=== PATIENT | male | born 1980 | race Hispanic/Latino ===

== ENCOUNTER 2017-09-25 07:51 | Emergency (ER) | payer OTHER, SELFPAY ==
--- NOTE | 2017-09-25 08:35 | EDPHYS ---
Physician Documentation [facility] Name: Bimal Arriaza Age: 36 yrs Sex: Male : 1980 Arrival Date: 09/25/2017 Time: 07:52 Bed 15 Private MD: ED Physician Torey Garcia HPI: 09/25 08:32 This 36 yrs old Male presents to ER via Ambulatory with complaints of Genital snw Pain. 08:32 The patient presents with tenderness, that is mild, penile. Onset: The symptoms/episode snw began/occurred gradually, 1 month(s) ago, and became persistent. Modifying factors: The symptoms are alleviated by nothing. Associated signs and symptoms: The patient has no apparent associated signs or symptoms. Severity of symptoms: At their worst the symptoms were mild, moderate. It is unknown whether or not the patient has had similar symptoms in the past. The patient has not recently seen a physician. uncircumcised. Historical: - Allergies: 08:03 PENICILLINS; lk1 - PMHx: 08:03 Diabetes - NIDDM; gastroporeisis; Hypertension; Chronic pain; lk1 - PSHx: 08:03 None; lk1 - Immunization history:: Adult Immunizations up to date. - Social history:: Smoking status: Patient uses tobacco products, smokes one-half pack cigarettes per day. ROS: 08:22 Constitutional: Negative for fever, chills, and weight loss, Eyes: Negative for injury, snw pain, redness, and discharge, ENT: Negative for injury, pain, and discharge, Neck: Negative for injury, pain, and swelling, Cardiovascular: Negative for chest pain, palpitations, and edema, Respiratory: Negative for shortness of breath, cough, wheezing, and pleuritic chest pain, Abdomen/GI: Negative for abdominal pain, nausea, vomiting, diarrhea, and constipation, Back: Negative for injury and pain, MS/Extremity: Negative for injury and deformity, Skin: Negative for injury, rash, and discoloration, Neuro: Negative for headache, weakness, numbness, tingling, and seizure. 08:22 : Positive for difficulty retracting foreskin with scabbed area that wont heal x 1 month, Negative for hematuria, penile discharge, urinary retention. Exam: 08:22 Constitutional: This is a well developed, well nourished patient who is awake, alert, snw and in no acute distress. Head/Face: Normocephalic, atraumatic. Eyes: Pupils equal round and reactive to light, extra-ocular motions intact. Lids and lashes normal. Conjunctiva and sclera are non-icteric and not injected. Cornea within normal limits. Periorbital areas with no swelling, redness, or edema. ENT: Nares patent. No nasal discharge, no septal abnormalities noted. Tympanic membranes are normal and external auditory canals are clear. Oropharynx with no redness, swelling, or masses, exudates, or evidence of obstruction, uvula midline. Mucous membranes moist. Neck: Trachea midline, no thyromegaly or masses palpated, and no cervical lymphadenopathy. Supple, full range of motion without nuchal rigidity, or vertebral point tenderness. No Meningismus. Chest/axilla: Normal chest wall appearance and motion. Nontender with no deformity. No lesions are appreciated. Cardiovascular: Regular rate and rhythm with a normal S1 and S2. No gallops, murmurs, or rubs. Normal PMI, no JVD. No pulse deficits. Respiratory: Lungs have equal breath sounds bilaterally, clear to auscultation and percussion. No rales, rhonchi or wheezes noted. No increased work of breathing, no retractions or nasal flaring. Abdomen/GI: Soft, non-tender, with normal bowel sounds. No distension or tympany. No guarding or rebound. No evidence of tenderness throughout. Back: No spinal tenderness. No costovertebral tenderness. Full range of motion. Skin: Warm, dry with normal turgor. Normal color with no rashes, no lesions, and no evidence of cellulitis. MS/ Extremity: Pulses equal, no cyanosis. Neurovascular intact. Full, normal range of motion. Neuro: Awake and alert, GCS 15, oriented to person, place, time, and situation. Cranial nerves II-XII grossly intact. Motor strength 5/5 in all extremities. Sensory grossly intact. Cerebellar exam normal. Normal gait. 08:22 : Male external genitalia: Patient is not circumisioned. trouble retracting foreskin x 1 month. dry scabbing at distal tip. Vital Signs: 08:03 BP 154 / 101; Pulse 84; Resp 15; Temp 97.6(TE); Pulse Ox 100% on R/A; Weight 72.57 kg lk1 (R); Height 5 ft. 7 in. (170.18 cm) (R); Pain 6/10; 08:03 Body Mass Index 25.06 (72.57 kg, 170.18 cm) lk1 MDM: 07:59 Patient medically screened. snw 08:36 Data reviewed: vital signs, nurses notes. Data interpreted: Pulse oximetry: on room air snw is 100 %. Counseling: I had a detailed discussion with the patient and/or guardian regarding: the historical points, exam findings, and any diagnostic results supporting the discharge/admit diagnosis, the presence of at least one elevated blood pressure reading (>120/80) during this emergency department visit, the need for outpatient follow up, to return to the emergency department if symptoms worsen or persist or if there are any questions or concerns that arise at home. Special discussion: I have referred the patient to see his PCP for further evaluation of high blood pressure. Based on the history and exam findings, there is no indication for further emergent testing or inpatient evaluation. I discussed with the patient/guardian the need to see the primary care provider for further evaluation of the symptoms. I discussed with the patient/guardian the need to see the urologist for further evaluation of the symptoms. Administered Medications: 08:45 Drug: DiFLUcan 400 mg Route: PO; ph 08:54 Follow up: Response: No adverse reaction ph Disposition: 09/26 07:47 Co-signature as Attending Physician, Torey Garcia MD Available for consultation at ps1 all times. . Disposition: 09/25/17 08:34 Discharged to Home. Impression: Phimosis. - Condition is Stable. - Discharge Instructions: Hypertension, Phimosis. - Medication Reconciliation Form, Thank You Letter, Antibiotic Education, Prescription Opioid Use form. - Follow up: Monisha Jefferson MD; When: 1 - 2 days; Reason: Recheck today's complaints, Continuance of care. Signatures: Lindsey Gonzalez, MEKHI-C QUALITY MANAGER-Csnw Oriana Scott, RN RN ph Sammi Lagunas RN RN lk1 Torey Garcia MD MD ps1 Corrections: (The following items were deleted from the chart) 09/25 08:42 08:22 : Positive for difficulty retracting foreskin with scabbed area that wont heal snw x 1 month, snw
--- NOTE | 2017-09-25 08:35 | ER ---
Nurse's Notes [facility] Name: Bimal Arriaza Age: 36 yrs Sex: Male : 1980 Arrival Date: 09/25/2017 Time: 07:52 Bed 15 Private MD: Diagnosis: Phimosis Presentation: 09/25 08:00 Presenting complaint: Patient states: "I have some white stuff around the tip of my lk1 penis and the skin is swelling shut. Maybe its a fungus and I am having trouble healing because I am diabetic.". Transition of care: patient was not received from another setting of care. Onset of symptoms was August 24, 2017. Care prior to arrival: None. 08:00 Method Of Arrival: Ambulatory lk1 08:00 Acuity: RICARDO 4 lk1 Triage Assessment: 08:03 General: Appears in no apparent distress. Behavior is calm, cooperative, appropriate lk1 for age. Pain: Complains of pain in pelvis Pain currently is 6 out of 10 on a pain scale. Historical: - Allergies: 08:03 PENICILLINS; lk1 - PMHx: 08:03 Diabetes - NIDDM; gastroporeisis; Hypertension; Chronic pain; lk1 - PSHx: 08:03 None; lk1 - Immunization history:: Adult Immunizations up to date. - Social history:: Smoking status: Patient uses tobacco products, smokes one-half pack cigarettes per day. Screenin:15 Abuse screen: Denies threats or abuse. Denies injuries from another. Nutritional ph screening: No deficits noted. Tuberculosis screening: No symptoms or risk factors identified. Fall Risk None identified. Assessment: 08:10 General: Appears in no apparent distress. uncomfortable, Behavior is calm, cooperative, ph appropriate for age, Denies fever. Pain: Complains of pain in groin. Neuro: Level of Consciousness is awake, alert, obeys commands, Oriented to person, place, time, situation. Cardiovascular: Capillary refill < 3 seconds Patient's skin is warm and dry. Respiratory: Airway is patent Respiratory effort is even, unlabored. : Penile discharge is white, Swelling noted at urinary meatus Reports pain with urination, Denies inability to void. Derm: Skin is intact, is healthy with good turgor, Skin is pink, warm \\T\\ dry. Musculoskeletal: Circulation, motion, and sensation intact. Range of motion: intact in all extremities. Vital Signs: 08:03 BP 154 / 101; Pulse 84; Resp 15; Temp 97.6(TE); Pulse Ox 100% on R/A; Weight 72.57 kg lk1 (R); Height 5 ft. 7 in. (170.18 cm) (R); Pain 6/10; 08:03 Body Mass Index 25.06 (72.57 kg, 170.18 cm) lk1 ED Course: 07:52 Patient arrived in ED. as 07:59 Lindsey Gonzalez FNP-C [facility]. snw 07:59 Torey Garcia MD is Attending Physician. snw 08:00 Oriana Scott, RN is Primary Nurse. ph 08:02 Triage completed. lk1 08:03 Arm band placed on right wrist. lk1 08:15 Patient has correct armband on for positive identification. Placed in gown. Bed in low ph position. Call light in reach. Side rails up X 1. Pulse ox on. NIBP on. Warm blanket given. 08:34 Monisha Jefferson MD is Referral Physician. snw 08:58 No provider procedures requiring assistance completed. Patient did not have IV access ph during this emergency room visit. Administered Medications: 08:45 Drug: DiFLUcan 400 mg Route: PO; ph 08:54 Follow up: Response: No adverse reaction ph Outcome: 08:34 Discharge ordered by . snw 08:59 Discharged to home ambulatory. ph 08:59 Condition: good 08:59 Discharge instructions given to patient, Instructed on discharge instructions, follow up and referral plans. Demonstrated understanding of instructions, follow-up care. 08:59 Patient left the ED. ph Signatures: Lindsey Gonzalez FNP-C BATH TESTER-Jyoti Gee as Oriana Scott, RN RN ph Sammi Lagunas RN RN lk1
[2017-09-25] MEDS ORDERED: FLUCONAZOLE 100 MG TAB ONE (08:51)
[2017-09-25 09:02] VITALS: BP 154/101; TEMP 97.6; O2SAT 100
== END 2017-09-25 08:59 | disposition home or self-care (01) ==
LOC: ER 07:51
DX: N47.1 Phimosis (principal); I10 Essential (primary) hypertension; F17.210 Nicotine dependence, cigarettes, uncomplicated; Z88.0 Allergy status to penicillin
CPT/HCPCS: 99283

== ENCOUNTER 2017-12-10 11:32 | Emergency (ER) | payer SELFPAY ==
[2017-12-10] MEDS ORDERED: NA CHLORIDE 0.9% 1,000 ML ONE (12:00)
[2017-12-10 12:06] LABS: Absolute Monocytes 1.3 K/uL (0.1-1.3); Basophils % 0.8 % (0-1.3); Eosinophils % 0.4 % (0-4.4); Hematocrit 40.1 % (39.6-49.0); Lymphocytes % 23.9 % (15.3-44.8); MCV 89.5 fL (80-100); MPV 7.7 fL (7.6-11.3); Monocytes % 10.2 % (3.3-12.3); RBC Red Blood Cell Count 4.48 M/uL (4.33-5.43)
[2017-12-10 12:21] LABS: ALT/SGPT 40 U/L (12-78); AST/SGOT 26 U/L (15-37); Albumin 4.4 g/dL (3.4-5.0); Alkaline Phosphatase 67 U/L (45-117); BUN Blood Urea Nitrogen 22 mg/dL (7-18); Bicarbonate 25 mmol/L (21-32); Bilirubin Direct < 0.1 mg/dL (0-0.2); Bilirubin Total 0.4 mg/dL (0.2-1.0); Glucose Level 176 mg/dL (74-106); Lipase 153 U/L (73-393); Potassium 3.7 mmol/L (3.5-5.1); Protein, Total 8.3 g/dL (6.4-8.2); Sodium Level 136 mmol/L (136-145)
--- NOTE | 2017-12-10 12:22 | RAD REPORT ---
EXAM DESCRIPTION: CT - Stone Protocol - 12/10/2017 12:11 pm CLINICAL HISTORY: Flank pain. ABD PAIN COMPARISON: Abdomen Pelvis W Contrast dated 02/28/2016 TECHNIQUE: Axial images were obtained without oral or IV contrast. Lack of contrast limits solid org an and vascular assessment. The [id number] spans the entirety of the system partially obscuring uppermost abdomen and lung bases. Coronal reformatted images were obtained and reviewed. All CT scans are performed using dose optimization technique as appropriate and may include automated exposure control or mA/KV adjustment according to patient size. FINDINGS: The lower lung clark are clear. Mild thickening of the distal esophagus. Imaged portions of the liver and spleen show no suspicious findings on non-contrast imaging. The panc reas and adrenal glands are normal. No pathologic lymphadenopathy in the abdomen or pelvis. No urinary tract stones or obstructive uropathy. 4 cm right renal cysts, unchanged. No bowel obstruction, free air, free fluid or abscess. Normal appendix noted. No significant bony abnormality. IMPRESSION: No urinary tract stones or obstructive uropathy.
--- NOTE | 2017-12-10 12:33 | ER ---
Nurse's Notes [facility] Name: Bimal Arriaza Age: 37 yrs Sex: Male : 1980 Arrival Date: 12/10/2017 Time: 11:34 Bed 14 Private MD: Diagnosis: Abdominal and pelvic pain;Chronic pain syndrome Presentation: 12/10 11:37 Presenting complaint: EMS states: pt. has had N/V and abdominal pain x 2 days, rb1 constipation x 4, and vomited dark emesis and feels like something is stuck in his throat. Administered Fentanyl 80 mcg IV x1 and Fentanyl 120 mcg x 1 and Zofran 4 mg x 1. Allergy to PCN. Takes Lisinopril, Levemir, and Glipizide. History of diabetes and gastroparesis. BP 150/100. 20 G AC. Transition of care: patient was not received from another setting of care. Onset of symptoms was December 07, 2017. Risk Assessment: Do you want to hurt yourself or someone else? Patient reports no desire to harm self or others. Initial Sepsis Screen: Does the patient meet any 2 criteria? No. Patient's initial sepsis screen is negative. Does the patient have a suspected source of infection? No. Patient's initial sepsis screen is negative. Care prior to arrival: Medication(s) given: zofran 4 mg, Fentanyl 80 mcg x1 and Fentanyl 120 mcg x1. 11:37 Method Of Arrival: EMS: [facility] rb1 11:37 Acuity: RICARDO 3 rb1 Triage Assessment: 11:37 General: Appears uncomfortable, Behavior is calm, cooperative. Pain: Complains of pain rb1 in epigastric area Pain currently is 10 out of 10 on a pain scale. Neuro: Level of Consciousness is awake, alert, obeys commands, Oriented to person, place, time, situation. Cardiovascular: Capillary refill < 3 seconds is brisk in bilateral fingers. Respiratory: Airway is patent Respiratory effort is even, unlabored, Respiratory pattern is regular, symmetrical. GI: Reports constipation, since x 4 days. : No signs and/or symptoms were reported regarding the genitourinary system. Derm: Skin is pink, warm \T\ dry. Historical: - Allergies: 11:37 PENICILLINS; rb1 - Home Meds: 11:37 Glipizide Oral [Active]; Lisinopril Oral [Active]; Levemir subcutaneous subcutaneous rb1 [Active]; - PMHx: 11:37 Chronic pain; Diabetes - NIDDM; gastroporeisis; Hypertension; rb1 - PSHx: 11:37 None; rb1 - Immunization history:: Adult Immunizations up to date. - Social history:: Smoking status: Patient/guardian denies using tobacco, the patient reports quitting approximately 0.5 years ago. - Ebola Screening: : Patient negative for fever greater than or equal to 101.5 degrees Fahrenheit, and additional compatible Ebola Virus Disease symptoms. Screenin:37 Abuse screen: Denies threats or abuse. Nutritional screening: No deficits noted. rb1 Tuberculosis screening: No symptoms or risk factors identified. Fall Risk None identified. Assessment: 11:37 General: See triage assessment. rb1 11:37 Reassessment: Pt. went to CT. rb1 11:37 GI: Bowel sounds present X 4 quads. Abd is soft Abdomen is tender to palpation in rb1 epigastric area. 12:30 Reassessment: Patient appears in no apparent distress at this time. Patient and/or rb1 family updated on plan of care and expected duration. Pain level reassessed. Patient is alert, oriented x 3, equal unlabored respirations, skin warm/dry/pink. 12:44 Reassessment: discharge pending due to IV fluids infusing. rb1 13:30 Reassessment: Patient appears in no apparent distress at this time. No changes from rb1 previously documented assessment. Vital Signs: 11:37 BP 149 / 91; Pulse 98; Resp 20; Temp 97.6(O); Pulse Ox 98% on R/A; Weight 79.38 kg (R); rb1 Height 5 ft. 7 in. (170.18 cm) (R); Pain 10/10; 12:30 BP 149 / 91; Pulse 78; Resp 20; Pulse Ox 100% on R/A; rb1 13:30 BP 149 / 82; Pulse 77; Resp 20; Pulse Ox 100% ; rb1 11:37 Body Mass Index 27.41 (79.38 kg, 170.18 cm) [facility] ED Course: 11:34 Patient arrived in ED. ss 11:37 Christiano Ribeiro MD is Attending Physician. gs 11:37 Patient has correct armband on for positive identification. Bed in low position. Call rb1 light in reach. Side rails up X 1. Pulse ox on. NIBP on. 11:37 Arm band placed on left wrist. rb1 11:43 Rosmery Greenwood, RN is Primary Nurse. rb1 11:49 Triage completed. rb1 11:56 Initial lab(s) drawn, by me, sent to lab. Maintain EMS IV. Dressing intact. Good blood jp3 return noted. Site clean \T\ dry. 12:12 CT Stone Protocol In Process Unspecified. EDMS 12:12 CT completed. Patient tolerated procedure well. Patient moved back from CT. bq 12:31 Eze Mcintyre MD is Referral Physician. gs 12:32 Neftali Gayle DO is Referral Physician. gs 13:55 No provider procedures requiring assistance completed. IV discontinued, intact, rb1 bleeding controlled, No redness/swelling at site. Pressure dressing applied. Administered Medications: 12:01 Drug: NS 0.9% 1000 ml Route: IV; Rate: 1 bolus; Site: right antecubital; rb1 13:43 Follow up: IV Status: Completed infusion rb1 12:25 Drug: CarafATE 1 grams Route: PO; rb1 13:00 Follow up: Response: No adverse reaction rb1 12:43 Drug: HALdol 2.5 mg Route: IVP; Site: right antecubital; rb1 13:05 Follow up: Response: No adverse reaction rb1 13:50 Drug: Benadryl 25 mg Route: IVP; Site: right antecubital; rb1 14:00 Follow up: Response: Medication administered at discharge. rb1 13:50 Drug: HALdol 2.5 mg Route: IVP; Site: right antecubital; rb1 14:00 Follow up: Response: Medication administered at discharge. rb1 Outcome: 12:32 Discharge ordered by . gs 13:55 Discharged to home ambulatory. rb1 13:55 Condition: stable 13:55 Discharge instructions given to patient, Instructed on discharge instructions, follow up and referral plans. medication usage, Demonstrated understanding of instructions, follow-up care, Prescriptions given X none. pt. was told to use Miralax 13:55 Patient left the ED. rb1 Signatures: Dispatcher [employer] EDMS Duyen Saleh Shelby, RN RN Rosmery Greenwood, HUNTER HARRISON rb1 Christiano Ribeiro MD MD Herb Toney jp3 Corrections: (The following items were deleted from the chart) 14:00 13:55 Benadryl 25 mg IVP in right antecubital rb1 rb1 14:05 14:03 Patient left the ED. rb1 rb1
--- NOTE | 2017-12-10 12:33 | EDPHYS ---
Physician Documentation [facility] Name: Bimal Arriaza Age: 37 yrs Sex: Male : 1980 Arrival Date: 12/10/2017 Time: 11:34 Bed 14 Private MD: ED Physician Christiano Ribeiro HPI: 12/10 12:28 This 37 yrs old Male presents to ER via EMS with complaints of Abdominal Pain. gs 12:28 The patient presents with abdominal pain that is diffuse. Onset: The symptoms/episode gs began/occurred 2 day(s) ago. The symptoms do not radiate. Associated signs and symptoms: Pertinent positives: constipation, vomiting. Associated signs and symptoms: Pertinent positives:. The symptoms are described as crampy. Severity of pain: At its worst the pain was moderate in the emergency department the pain is unchanged. The patient has experienced similar episodes in the past, chronically. Historical: - Allergies: 11:37 PENICILLINS; rb1 - Home Meds: 11:37 Glipizide Oral [Active]; Lisinopril Oral [Active]; Levemir subcutaneous subcutaneous rb1 [Active]; - PMHx: 11:37 Chronic pain; Diabetes - NIDDM; gastroporeisis; Hypertension; rb1 - PSHx: 11:37 None; rb1 - Immunization history:: Adult Immunizations up to date. - Social history:: Smoking status: Patient/guardian denies using tobacco, the patient reports quitting approximately 0.5 years ago. - Ebola Screening: : Patient negative for fever greater than or equal to 101.5 degrees Fahrenheit, and additional compatible Ebola Virus Disease symptoms. ROS: 12:28 All other systems are negative. gs Exam: 12:28 Head/Face: Normocephalic, atraumatic. Eyes: Pupils equal round and reactive to light, gs extra-ocular motions intact. Lids and lashes normal. Conjunctiva and sclera are non-icteric and not injected. Cornea within normal limits. Periorbital areas with no swelling, redness, or edema. ENT: Nares patent. No nasal discharge, no septal abnormalities noted. Tympanic membranes are normal and external auditory canals are clear. Oropharynx with no redness, swelling, or masses, exudates, or evidence of obstruction, uvula midline. Mucous membranes moist. Neck: Trachea midline, no thyromegaly or masses palpated, and no cervical lymphadenopathy. Supple, full range of motion without nuchal rigidity, or vertebral point tenderness. No Meningismus. Chest/axilla: Normal chest wall appearance and motion. Nontender with no deformity. No lesions are appreciated. Cardiovascular: Regular rate and rhythm with a normal S1 and S2. No gallops, murmurs, or rubs. Normal PMI, no JVD. No pulse deficits. Respiratory: Lungs have equal breath sounds bilaterally, clear to auscultation and percussion. No rales, rhonchi or wheezes noted. No increased work of breathing, no retractions or nasal flaring. Back: No spinal tenderness. No costovertebral tenderness. Full range of motion. Skin: Warm, dry with normal turgor. Normal color with no rashes, no lesions, and no evidence of cellulitis. MS/ Extremity: Pulses equal, no cyanosis. Neurovascular intact. Full, normal range of motion. Neuro: Awake and alert, GCS 15, oriented to person, place, time, and situation. Cranial nerves II-XII grossly intact. Motor strength 5/5 in all extremities. Sensory grossly intact. Cerebellar exam normal. Normal gait. 12:28 Constitutional: The patient appears alert, awake, uncomfortable. 12:28 Abdomen/GI: Palpation: mild abdominal tenderness, in the epigastric area, rebound tenderness, is not appreciated. Vital Signs: 11:37 BP 149 / 91; Pulse 98; Resp 20; Temp 97.6(O); Pulse Ox 98% on R/A; Weight 79.38 kg (R); rb1 Height 5 ft. 7 in. (170.18 cm) (R); Pain 10/10; 12:30 BP 149 / 91; Pulse 78; Resp 20; Pulse Ox 100% on R/A; rb1 13:30 BP 149 / 82; Pulse 77; Resp 20; Pulse Ox 100% ; rb1 11:37 Body Mass Index 27.41 (79.38 kg, 170.18 cm) rb1 MDM: 11:37 Patient medically screened. gs 12:28 Differential diagnosis: non-specific abd pain, pancreatitis, CHRONIC ABDOMINAL PAIN. gs Data reviewed: vital signs, nurses notes. Response to treatment: the patient's symptoms have markedly improved after treatment, INFORMED PT WOULD NOT BE GIVING HIM OPIATE PAIN MEDICATION, and as a result, I will discharge patient. 12/10 11:38 Order name: Basic Metabolic Panel; Complete Time: 12:25 12/10 11:38 Order name: CBC with Diff; Complete Time: 12:25 12/10 11:38 Order name: Hepatic Function; Complete Time: 12:25 12/10 11:38 Order name: Lipase; Complete Time: 12:25 12/10 11:38 Order name: CT Stone Protocol; Complete Time: 12:25 12/10 11:38 Order name: IV Saline Lock; Complete Time: 11:54 12/10 11:38 Order name: Labs collected and sent; Complete Time: 11:54 gs Administered Medications: 12:01 Drug: NS 0.9% 1000 ml Route: IV; Rate: 1 bolus; Site: right antecubital; rb1 13:43 Follow up: IV Status: Completed infusion rb1 12:25 Drug: CarafATE 1 grams Route: PO; rb1 13:00 Follow up: Response: No adverse reaction rb1 12:43 Drug: HALdol 2.5 mg Route: IVP; Site: right antecubital; rb1 13:05 Follow up: Response: No adverse reaction rb1 13:50 Drug: Benadryl 25 mg Route: IVP; Site: right antecubital; rb1 14:00 Follow up: Response: Medication administered at discharge. rb1 13:50 Drug: HALdol 2.5 mg Route: IVP; Site: right antecubital; rb1 14:00 Follow up: Response: Medication administered at discharge. rb1 Disposition: 12/10/17 12:32 Discharged to Home. Impression: Abdominal and pelvic pain, Chronic pain syndrome. - Condition is Stable. - Discharge Instructions: Chronic Pain, Abdominal Pain, Adult, [id number]. - Prescriptions for Miralax 17 gram/dose Oral - take 1 packet by ORAL route once daily dilute powder in 8 ounces of water or juice; 1 bottle. - Medication Reconciliation Form, Thank You Letter, Antibiotic Education, Prescription Opioid Use form. - Follow up: Eze Mcintyre MD; When: 2 - 3 days; Reason: Recheck today's complaints, Re-evaluation by your physician. Follow up: Neftali Gayle DO; When: 2 - 3 days; Reason: Re-evaluation by your physician. Signatures: Dispatcher [employer] EDRosmery Blue, RN RN rb1 Christiano Ribeiro MD MD Corrections: (The following items were deleted from the chart) 14:02 11:38 Urine Dipstick-Ancillary ordered. gs rb1 14:03 12:32 12/10/2017 12:32 Discharged to Home. Impression: Abdominal and pelvic pain; rb1 Chronic pain syndrome. Condition is Stable. Forms are Medication Reconciliation Form, Thank You Letter, Antibiotic Education, Prescription Opioid Use. Follow up: Eze Mcintyre; When: 2 - 3 days; Reason: Recheck today's complaints, Re-evaluation by your physician. Follow up: Neftali Gayle; When: 2 - 3 days; Reason: Re-evaluation by your physician.
[2017-12-10] MEDS ORDERED: HALOPERIDOL LACT 5 MG/ML INJ ONE ×2 (12:42→13:48)
[2017-12-10] MEDS ORDERED: SUCRALFATE 1GM/10ML UCUP PO ONE (13:00)
[2017-12-10] MEDS ORDERED: DIPHENHYDRAMINE 50 MG/ML VIAL ONE (13:48)
[2017-12-10 14:07] VITALS: TEMP 97.6
[2017-12-10 14:08] VITALS: O2SAT 100
[2017-12-10 14:09] VITALS: BP 149/82
== END 2017-12-10 14:03 | disposition home or self-care (01) ==
LOC: ER 11:32
DX: G89.4 Chronic pain syndrome (principal); I10 Essential (primary) hypertension; E11.9 Type 2 diabetes mellitus without complications; Z79.4 Long term (current) use of insulin; Z88.0 Allergy status to penicillin
CPT/HCPCS: 36415; 74176; 76377; 80048; 80076; 82962; 83690; 85025; 96361; 96374; 96375; 99284; J1630; J7030

== ENCOUNTER 2018-10-29 17:53 | Emergency (ER) | payer OTHER, SELFPAY ==
--- NOTE | 2018-10-29 19:47 | RAD REPORT ---
EXAM DESCRIPTION: RAD - Forearm Right - 10/29/2018 7:39 pm CLINICAL HISTORY: Right arm pain FINDINGS: No fracture is seen involving the forearm.
--- NOTE | 2018-10-29 19:48 | RAD REPORT ---
EXAM DESCRIPTION: RAD - Hand Right 3 View - 10/29/2018 7:37 pm CLINICAL HISTORY: Right hand pain status post injury FINDINGS: Moderately displaced fracture involves the fifth metacarpal neck with angulation present a t the fracture site. No dislocation
[2018-10-29] MEDS ORDERED: IBUPROFEN 400 MG TAB ONE (19:51)
--- NOTE | 2018-10-29 19:59 | EDPHYS ---
Physician Documentation [facility] Name: Bimal Arriaza Age: 38 yrs Sex: Male : 1980 Arrival Date: 10/29/2018 Time: 17:54 Bed 20 Private MD: ED Physician Bryanna Delgado HPI: 10/29 19:15 This 38 yrs old Male presents to ER via Ambulatory with complaints of Hand cp Injury. 19:15 The patient or guardian reports decreased range of motion, injury, pain, swelling, cp tenderness. The complaints affect the ulna side of right hand. 19:15 Context: resulted from a fall. Onset: The symptoms/episode began/occurred 3 day(s) ago. cp Associated signs and symptoms: Pertinent negatives: cyanosis distally, decreased sensation distally. Historical: - Allergies: 18:11 PENICILLINS; aj1 - Home Meds: 18:11 Glipizide Oral [Active]; lisinopril Oral [Active]; Glyburide Oral [Active]; Levemir aj1 subcutaneous [Active]; - PMHx: 18:11 Chronic pain; Diabetes - NIDDM; gastroporeisis; Hypertension; aj1 - Immunization history:: Flu vaccine is not up to date. - Social history:: Smoking status: Patient uses tobacco products, smokes one-half pack cigarettes per day. - Ebola Screening: : Patient denies travel to an Ebola-affected area in the 21 days before illness onset. ROS: 19:20 Constitutional: Negative for body aches, chills, fever, poor PO intake. cp 19:20 Eyes: Negative for injury, pain, redness, and discharge. cp 19:20 ENT: Negative for drainage from ear(s), sore throat, difficulty swallowing, difficulty handling secretions. 19:20 Neck: Negative for pain with movement, pain at rest, stiffness. 19:20 Cardiovascular: Negative for chest pain. 19:20 Respiratory: Negative for cough, shortness of breath, wheezing. 19:20 Abdomen/GI: Negative for abdominal pain, vomiting, diarrhea, constipation. 19:20 Back: Negative for pain at rest, pain with movement. 19:20 MS/extremity: Positive for injury or acute deformity, decreased range of motion, pain, swelling, tenderness, of the ulna side of right hand. 19:20 Neuro: Negative for altered mental status, headache. 19:20 All other systems are negative. Exam: 19:25 Constitutional: The patient appears in no acute distress, alert, awake, well developed, cp well nourished. 19:25 Head/Face: Normocephalic, atraumatic. cp 19:25 Musculoskeletal/extremity: Extremities: grossly normal except: noted in the ulna side of right hand: deformity, pain, swelling, tenderness, ROM: limited active range of motion due to pain, in the right small finger, Perfusion: the extremity is normally perfused throughout, Sensation intact. 19:25 Skin: negative for open wounds of right hand. Vital Signs: 18:11 BP 146 / 92; Pulse 81; Resp 18; Temp 97.7; Pulse Ox 99% on R/A; Weight 77.11 kg (R); aj1 Height 5 ft. 7 in. (170.18 cm) (R); 19:15 BP 145 / 83; Pulse 74; Resp 18; Pulse Ox 99% ; ea 20:50 BP 136 / 86; Pulse 77; Resp 18; Pulse Ox 99% ; ea 18:11 Body Mass Index 26.63 (77.11 kg, 170.18 cm) aj1 Procedures: 21:00 Splinting: Splint applied to right hand using Orthoglass splint, sling, ulna gutter cp type. applied by tech. nurse. Examined by me, post splint application: neurovascular intact, Patient tolerated well. MDM: 19:07 Patient medically screened. cp 19:15 Differential diagnosis: dislocation, open fracture, closed fracture. cp 19:50 Test interpretation: by ED physician or midlevel provider: plain radiologic studies. ED cp course: xray of right hand show fracture of distal right fifth metacarpal . 19:58 Data reviewed: vital signs, nurses notes, radiologic studies, plain films. cp 19:58 Counseling: I had a detailed discussion with the patient and/or guardian regarding: the cp historical points, exam findings, and any diagnostic results supporting the discharge/admit diagnosis, radiology results, the need for outpatient follow up, for definitive care, a hand specialist, to return to the emergency department if symptoms worsen or persist or if there are any questions or concerns that arise at home. Response to treatment: the patient's symptoms have mildly improved after treatment, and as a result, I will discharge patient. 10/29 19:09 Order name: XRAY Hand RIGHT 3 View cp 10/29 19:09 Order name: XRAY Forearm RIGHT cp 10/29 19:57 Order name: Ulnar Gutter splint: orthoglass; Complete Time: 20:54 cp 10/29 21:01 Order name: Sling; Complete Time: 21:01 ea Administered Medications: 19:40 Drug: Ibuprofen 800 mg Route: PO; ea 20:50 Follow up: Response: No adverse reaction; Pain is decreased ea Disposition: 10/29/18 19:58 Discharged to Home. Impression: Displaced fracture of neck of fifth metacarpal bone, right hand. - Condition is Stable. - Discharge Instructions: Boxer's Fracture. - Prescriptions for Naprosyn 500 mg Oral Tablet - take 1 tablet by ORAL route 2 times per day take with food; 20 tablet. Tylenol- Codeine #3 300-30 mg Oral Tablet - take 2 tablets by ORAL route every 8 hours As needed; 15 tablet. - Medication Reconciliation Form, Thank You Letter, Antibiotic Education, Prescription Opioid Use, Work release form form. - Follow up: Ryan Pereira MD; When: 1 - 2 days; Reason: boxer's fracture of right hand. - Problem is new. - Symptoms have improved. Signatures: Dispatcher [employer] EDMS Rita Frey RN RN aj1 Yevgeniy Simon PA PA cp Antunez, Elena, RN RN ea Corrections: (The following items were deleted from the chart) 21:04 19:58 10/29/2018 19:58 Discharged to Home. Impression: Displaced fracture of neck of ea fifth metacarpal bone, right hand. Condition is Stable. Forms are Medication Reconciliation Form, Thank You Letter, Antibiotic Education, Prescription Opioid Use. Follow up: Ryan Pereira; When: 1 - 2 days; Reason: boxer's fracture of right hand. Problem is new. Symptoms have improved. cp
--- NOTE | 2018-10-29 19:59 | ER ---
Nurse's Notes [facility] Name: Bimal Arriaza Age: 38 yrs Sex: Male : 1980 Arrival Date: 10/29/2018 Time: 17:54 Bed 20 Private MD: Diagnosis: Displaced fracture of neck of fifth metacarpal bone, right hand Presentation: 10/29 18:09 Presenting complaint: Patient states: "I think I broke my hand. I thought I just aj1 bruised it then I noticed it getting swollen and I can't left my last 2 fingers" Patient reports that he fell down three steps and hurt his hand when he fell 3 days ago. Transition of care: patient was not received from another setting of care. Onset of symptoms was October 30, 2018. Risk Assessment: Do you want to hurt yourself or someone else? Patient reports no desire to harm self or others. Initial Sepsis Screen: Does the patient meet any 2 criteria? No. Patient's initial sepsis screen is negative. Does the patient have a suspected source of infection? No. Patient's initial sepsis screen is negative. Care prior to arrival: None. 18:09 Method Of Arrival: Ambulatory aj1 18:09 Acuity: RICARDO 4 aj1 Triage Assessment: 18:11 General: Appears in no apparent distress. uncomfortable, Behavior is calm, cooperative, aj1 appropriate for age. Pain: Complains of pain in right hand Pain currently is 9 out of 10 on a pain scale. Neuro: Level of Consciousness is awake, alert, obeys commands, Oriented to person, place, time, situation. Cardiovascular: Patient's skin is warm and dry. Respiratory: Airway is patent Respiratory effort is even, unlabored, Respiratory pattern is regular, symmetrical. Musculoskeletal: Swelling present in right hand. Injury Description: Patient fell down 3 steps 3 days ago. Historical: - Allergies: 18:11 PENICILLINS; aj1 - Home Meds: 18:11 Glipizide Oral [Active]; lisinopril Oral [Active]; Glyburide Oral [Active]; Levemir aj1 subcutaneous [Active]; - PMHx: 18:11 Chronic pain; Diabetes - NIDDM; gastroporeisis; Hypertension; aj1 - Immunization history:: Flu vaccine is not up to date. - Social history:: Smoking status: Patient uses tobacco products, smokes one-half pack cigarettes per day. - Ebola Screening: : Patient denies travel to an Ebola-affected area in the 21 days before illness onset. Screenin:15 Abuse screen: Denies threats or abuse. Nutritional screening: No deficits noted. ea Tuberculosis screening: No symptoms or risk factors identified. Fall Risk None identified. Assessment: 19:28 General: Appears uncomfortable, Behavior is calm, cooperative, appropriate for age. ea Pain: Complains of pain in right hand Pain radiates to right elbow Pain currently is 9 out of 10 on a pain scale. Neuro: Level of Consciousness is awake, alert, obeys commands, Oriented to person, place, time, situation. Cardiovascular: Patient's skin is warm and dry. Respiratory: Airway is patent Respiratory effort is even, unlabored, Respiratory pattern is regular, symmetrical. Derm: Skin is dry, Skin is normal, Skin temperature is warm. Musculoskeletal: Swelling present in dorsal aspect of proximal phalanx of right little finger and dorsum of right hand. 20:58 Reassessment: Patient and/or family updated on plan of care and expected duration. Pain ea level reassessed. Patient is alert, oriented x 3, equal unlabored respirations, skin warm/dry/pink. Discharge instruction given to patient, verbalized the understanding of instruction. Pt left ED ambulatory, tolerating well. Vital Signs: 18:11 BP 146 / 92; Pulse 81; Resp 18; Temp 97.7; Pulse Ox 99% on R/A; Weight 77.11 kg (R); aj1 Height 5 ft. 7 in. (170.18 cm) (R); 19:15 BP 145 / 83; Pulse 74; Resp 18; Pulse Ox 99% ; ea 20:50 BP 136 / 86; Pulse 77; Resp 18; Pulse Ox 99% ; ea 18:11 Body Mass Index 26.63 (77.11 kg, 170.18 cm) aj1 ED Course: 17:54 Patient arrived in ED. as 18:10 Triage completed. aj1 18:11 Arm band placed on Patient placed in waiting room, Patient notified of wait time. aj1 19:02 Yevgeniy Simon PA is PHCP. cp 19:02 Bryanna Delgado MD is Attending Physician. cp 19:15 Patient has correct armband on for positive identification. Bed in low position. Call ea light in reach. 19:22 Dana Landry, RN is Primary Nurse. ea 19:38 XRAY Hand RIGHT 3 View In Process Unspecified. EDMS 19:38 XRAY Forearm RIGHT In Process Unspecified. EDMS 19:57 Ryan Pereira MD is Referral Physician. cp 20:50 Orthoglass splint: Ulnar gutter/Boxer splint applied on right forearm. ea 21:02 No provider procedures requiring assistance completed. Patient did not have IV access ea during this emergency room visit. Administered Medications: 19:40 Drug: Ibuprofen 800 mg Route: PO; ea 20:50 Follow up: Response: No adverse reaction; Pain is decreased ea Outcome: 19:58 Discharge ordered by MD. cp 21:00 Discharged to home ambulatory. ea 21:00 Condition: improved 21:00 Discharge instructions given to patient, Instructed on discharge instructions, follow up and referral plans. medication usage, Demonstrated understanding of instructions, follow-up care, medications, Prescriptions given X 2. 21:04 Patient left the ED. ea Signatures: Dispatcher [employer] EDRita Bailon, RN RN aj1 Jyoti Silver as Yevgeniy Simon, REX PA cp Dana Landry, RN RN ea
[2018-10-29 22:00] VITALS: TEMP 97.7; O2SAT 99
[2018-10-29 22:04] VITALS: BP 136/86
== END 2018-10-29 21:04 | disposition home or self-care (01) ==
LOC: ER 17:53
PROC: 2W3CX1Z Immobilization of Right Lower Arm using Splint (ICD-10-PCS; principal; 2018-10-29)
DX: S62.336A Displaced fracture of neck of fifth metacarpal bone, right hand, initial encounter for closed fracture (principal); W19.XXXA Unspecified fall, initial encounter; E11.9 Type 2 diabetes mellitus without complications; I10 Essential (primary) hypertension; F17.210 Nicotine dependence, cigarettes, uncomplicated; Z88.0 Allergy status to penicillin
CPT/HCPCS: 99284

== ENCOUNTER 2019-02-23 05:07 | Emergency (ER) | payer OTHER, SELFPAY ==
[2019-02-23] MEDS ORDERED: ONDANSETRON 4 MG/2 ML VIAL ONE (05:49)
[2019-02-23] MEDS ORDERED: DIAZEPAM 5 MG TABLET ONE (05:49)
[2019-02-23] MEDS ORDERED: MORPHINE 4 MG/ML SYR ONE ×2 (05:49→07:53)
[2019-02-23] MEDS ORDERED: KETOROLAC 30 MG/ML INJ ONE (05:49)
[2019-02-23 06:17] LABS: Basophils % 1.1 % (0-1.3); Hematocrit 42.6 % (39.6-49.0); Lymphocytes % 38.5 % (15.3-44.8); MPV 8.2 fL (7.6-11.3); RBC Red Blood Cell Count 4.67 M/uL (4.33-5.43)
[2019-02-23 06:29] LABS: ALT/SGPT 39 U/L (12-78); AST/SGOT 21 U/L (15-37); Albumin 4.6 g/dL (3.4-5.0); Alkaline Phosphatase 74 U/L (45-117); BUN Blood Urea Nitrogen 26 mg/dL (7-18); Bicarbonate 24 mmol/L (21-32); Bilirubin Direct < 0.1 mg/dL (0-0.2); Bilirubin Total 0.3 mg/dL (0.2-1.0); Glucose Level 188 mg/dL (74-106); Lipase 270 U/L (73-393); Potassium 4.3 mmol/L (3.5-5.1); Protein, Total 8.2 g/dL (6.4-8.2); Sodium Level 137 mmol/L (136-145); Troponin (Emerg Dept Use Only) < 0.02 ng/mL (0.0-0.045)
--- NOTE | 2019-02-23 07:27 | ER ---
Nurse's Notes [facility] Name: Bimal Arriaza Age: 38 yrs Sex: Male : 1980 Arrival Date: 02/23/2019 Time: 05:10 Bed 7 Private MD: Diagnosis: Type 2 diabetes mellitus;Strain of muscle and tendon of back wall of thorax Presentation: 02/23 05:24 Presenting complaint: Patient states: Mid back pain x 1 month, large bump to right side lp1 of mouth x 2 weeks; States pain to back worse, "When I press my back on something, it feels better". Transition of care: patient was not received from another setting of care. Onset of symptoms was February 23, 2019. Risk Assessment: Do you want to hurt yourself or someone else? Patient reports no desire to harm self or others. Initial Sepsis Screen: Does the patient meet any 2 criteria? No. Patient's initial sepsis screen is negative. Does the patient have a suspected source of infection? No. Patient's initial sepsis screen is negative. Care prior to arrival: None. 05:24 Method Of Arrival: Ambulatory lp1 05:24 Acuity: RICARDO 3 lp1 Historical: - Allergies: 05:26 PENICILLINS; lp1 - Home Meds: 05:26 Glyburide Oral [Active]; lisinopril Oral [Active]; Metformin Oral [Active]; lp1 - PMHx: 05:26 Chronic pain; Diabetes - NIDDM; gastroporeisis; Hypertension; lp1 - PSHx: 05:26 None; lp1 - Immunization history:: Adult Immunizations up to date. - Social history:: Smoking status: Patient uses tobacco products, smokes one-half pack cigarettes per day. - Ebola Screening: : No symptoms or risks identified at this time. - Family history:: not pertinent. Screenin:26 Abuse screen: Denies threats or abuse. Denies injuries from another. Nutritional lp1 screening: No deficits noted. Tuberculosis screening: No symptoms or risk factors identified. Fall Risk None identified. Assessment: 05:27 General: Appears uncomfortable, Behavior is appropriate for age. Pain: Complains of lp1 pain in lumbar area Pain currently is 7 out of 10 on a pain scale. Quality of pain is described as sharp, Pain began 1 month ago. Neuro: Level of Consciousness is awake, alert, obeys commands. Cardiovascular: Patient's skin is warm and dry. Respiratory: Respiratory effort is even, unlabored. GI: No deficits noted. : No deficits noted. EENT: No deficits noted. Derm: Skin is pink, warm \\T\\ dry. Parent/caregiver reports the patient having lump to right side of mouth. Musculoskeletal: No deficits noted. 06:43 Reassessment: Patient and/or family updated on plan of care and expected duration. Pain lp1 level reassessed. Patient resting, appears calm; States some relief to back pain at this time. 07:48 Reassessment: pt states "the pain went down a little but its back", provider notified. tw2 Patient states symptoms have not improved. 07:56 Reassessment: pt states "i will go to the pharmacy now my family is out front". tw2 Vital Signs: 05:25 BP 145 / 96; Pulse 83; Resp 18; Temp 97.4(TE); Pulse Ox 99% on R/A; Weight 79.83 kg; lp1 Height 5 ft. 7 in. (170.18 cm); Pain 7/10; 06:20 BP 140 / 81 LA; ar5 06:20 BP 128 / 84 RA; ar5 06:43 BP 120 / 74; Pulse 64; Resp 18; Pulse Ox 98% on R/A; lp1 07:00 BP 115 / 70; Pulse 66; Resp 18; Pulse Ox 98% ; sv 07:48 BP 123 / 81 LA; Pulse 65; Resp 17; Pulse Ox 99% on R/A; tw2 07:49 BP 125 / 90 RA; Pulse 71; Resp 18; Pain 7/10; tw2 05:25 Body Mass Index 27.57 (79.83 kg, 170.18 cm) lp1 ED Course: 05:10 Patient arrived in ED. ag3 05:15 Yevgeniy Guillermo MD is Attending Physician. stefania 05:23 Suzette Foss, HUNTER is Primary Nurse. lp1 05:25 Triage completed. lp1 05:25 Arm band placed on right wrist. lp1 05:26 Patient has correct armband on for positive identification. lp1 05:29 No provider procedures requiring assistance completed. lp1 05:55 Inserted saline lock: 20 gauge in right antecubital area, using aseptic technique. lp1 Blood collected. 06:36 Spine Thoracic Ap/Lat XRAY In Process Unspecified. EDMS 06:55 X-ray(s) taken. sv 06:58 Chest Single View XRAY In Process Unspecified. EDMS 06:59 Primary Nurse role handed off by Suzette Foss RN sv 06:59 Cristal Hodges, HUNTER is Primary Nurse. sv 07:00 Awaiting radiology results. Awaiting re-evaluation by ER provider. sv 07:00 Report received from Suzette HARRISON. sv 07:56 IV discontinued, intact, bleeding controlled, No redness/swelling at site. Pressure tw2 dressing applied. Administered Medications: 06:00 Drug: TORadol 30 mg Route: IVP; Site: right antecubital; lp1 06:42 Follow up: Response: Pain is decreased lp1 06:00 Drug: Valium 5 mg Route: PO; lp1 06:42 Follow up: Response: Pain is decreased lp1 06:00 Drug: morphine 4 mg {Note: RASS 1.} Route: IVP; Site: right antecubital; lp1 06:42 Follow up: Response: Pain is decreased; RASS: Alert and Calm (0) lp1 06:01 Drug: Zofran 4 mg Route: IVP; Site: right antecubital; lp1 06:42 Follow up: Response: No adverse reaction lp1 07:51 Drug: morphine 4 mg {Note: RASS 0.} Route: IVP; Site: right antecubital; tw2 07:57 Follow up: Response: No adverse reaction; Pain is decreased; RASS: Alert and Calm (0) tw2 07:56 CANCELLED (Patient Refused): Zofran 4 mg IVP once; over 2 minutes tw2 Outcome: 07:26 Discharge ordered by MD. aguiar 07:57 Discharged to home ambulatory, with family. tw2 07:57 Condition: stable 07:57 Discharge instructions given to patient, family, Instructed on discharge instructions, follow up and referral plans. no drinking with medication, no driving heavy equipment, medication usage, Demonstrated understanding of instructions, follow-up care, medications, Prescriptions given X 3. 07:57 Patient left the ED. tw2 Signatures: Dispatcher [employer] EDAL Cristal Hodges RN RN sv Anderson, Corey, MD MD cha Pena, Laura, RN RN lp1 Rosana Jimenes RN RN tw2 Alie Herring ag3 Cira Hernandez ar5 Corrections: (The following items were deleted from the chart) 06:01 05:24 Acuity: RICARDO 4 lp1 lp1 06:01 05:29 Patient did not have IV access during this emergency room visit. lp1 lp1
--- NOTE | 2019-02-23 07:28 | EDPHYS ---
Physician Documentation [facility] Name: Bimal Arriaza Age: 38 yrs Sex: Male : 1980 Arrival Date: 02/23/2019 Time: 05:10 Bed 7 Private MD: Yevgeniy Rowan HPI: 02/23 05:43 This 38 yrs old Male presents to ER via Ambulatory with complaints of Back stefania Pain. 05:43 The patient presents with pain that is acute, with no known mechanism of injury. The stefania symptoms are located in the left scapular area, right scapular area and thoracic area. Historical: - Allergies: 05:26 PENICILLINS; lp1 - Home Meds: 05:26 Glyburide Oral [Active]; lisinopril Oral [Active]; Metformin Oral [Active]; lp1 - PMHx: 05:26 Chronic pain; Diabetes - NIDDM; gastroporeisis; Hypertension; lp1 - PSHx: 05:26 None; lp1 - Immunization history:: Adult Immunizations up to date. - Social history:: Smoking status: Patient uses tobacco products, smokes one-half pack cigarettes per day. - Ebola Screening: : No symptoms or risks identified at this time. - Family history:: not pertinent. ROS: 05:43 Constitutional: Negative for fever, chills, and weight loss. stefania Exam: 05:43 Constitutional: This is a well developed, well nourished patient who is awake, alert, stefania and in no acute distress. Head/Face: Normocephalic, atraumatic. Eyes: Pupils equal round and reactive to light, extra-ocular motions intact. Lids and lashes normal. Conjunctiva and sclera are non-icteric and not injected. Cornea within normal limits. Periorbital areas with no swelling, redness, or edema. ENT: Nares patent. No nasal discharge, no septal abnormalities noted. Tympanic membranes are normal and external auditory canals are clear. Oropharynx with no redness, swelling, or masses, exudates, or evidence of obstruction, uvula midline. Mucous membranes moist. Neck: Trachea midline, no thyromegaly or masses palpated, and no cervical lymphadenopathy. Supple, full range of motion without nuchal rigidity, or vertebral point tenderness. No Meningismus. Chest/axilla: Normal chest wall appearance and motion. Nontender with no deformity. No lesions are appreciated. Cardiovascular: Regular rate and rhythm with a normal S1 and S2. No gallops, murmurs, or rubs. Normal PMI, no JVD. No pulse deficits. Respiratory: Lungs have equal breath sounds bilaterally, clear to auscultation and percussion. No rales, rhonchi or wheezes noted. No increased work of breathing, no retractions or nasal flaring. Abdomen/GI: Soft, non-tender, with normal bowel sounds. No distension or tympany. No guarding or rebound. No evidence of tenderness throughout. Male : Normal genitalia with no discharge or lesions. Skin: Warm, dry with normal turgor. Normal color with no rashes, no lesions, and no evidence of cellulitis. MS/ Extremity: Pulses equal, no cyanosis. Neurovascular intact. Full, normal range of motion. Neuro: Awake and alert, GCS 15, oriented to person, place, time, and situation. Cranial nerves II-XII grossly intact. Motor strength 5/5 in all extremities. Sensory grossly intact. Cerebellar exam normal. Normal gait. Psych: Awake, alert, with orientation to person, place and time. Behavior, mood, and affect are within normal limits. 05:43 Back: pain, that is mild, ROM is painful, normal spinal alignment noted, CVA tenderness, is absent, muscle spasm, is not present. Vital Signs: 05:25 BP 145 / 96; Pulse 83; Resp 18; Temp 97.4(TE); Pulse Ox 99% on R/A; Weight 79.83 kg; lp1 Height 5 ft. 7 in. (170.18 cm); Pain 7/10; 06:20 BP 140 / 81 LA; ar5 06:20 BP 128 / 84 RA; ar5 06:43 BP 120 / 74; Pulse 64; Resp 18; Pulse Ox 98% on R/A; lp1 07:00 BP 115 / 70; Pulse 66; Resp 18; Pulse Ox 98% ; sv 07:48 BP 123 / 81 LA; Pulse 65; Resp 17; Pulse Ox 99% on R/A; tw2 07:49 BP 125 / 90 RA; Pulse 71; Resp 18; Pain 7/10; tw2 05:25 Body Mass Index 27.57 (79.83 kg, 170.18 cm) lp1 MDM: 05:16 Patient medically screened. [facility] 05:43 Data reviewed: vital signs, nurses notes, lab test result(s), EKG, radiologic studies, stefania plain films. 02/23 05:43 Order name: Basic Metabolic Panel; Complete Time: 06:46 [facility] 02/23 05:43 Order name: CBC with Diff; Complete Time: 06:46 [facility] 02/23 05:43 Order name: LFT's; Complete Time: 06:46 [facility] 02/23 05:43 Order name: Magnesium; Complete Time: 06:46 [facility] 02/23 05:43 Order name: Troponin (emerg Dept Use Only); Complete Time: 06:46 [facility] 02/23 05:43 Order name: Spine Thoracic Ap/Lat XRAY [facility] 02/23 05:43 Order name: Lipase; Complete Time: 06:46 [facility] 02/23 06:46 Order name: Chest Single View XRAY [facility] 02/23 05:43 Order name: EKG; Complete Time: 05:44 [facility] 02/23 05:43 Order name: Cardiac monitoring; Complete Time: 06:01 [facility] 02/23 05:43 Order name: EKG - Nurse/Tech; Complete Time: 05:59 [facility] 02/23 05:43 Order name: IV Saline Lock; Complete Time: 05:59 [facility] 02/23 05:43 Order name: Labs collected and sent; Complete Time: 05:59 [facility] 02/23 05:43 Order name: O2 Per Protocol; Complete Time: 06:01 [facility] 02/23 05:43 Order name: O2 Sat Monitoring; Complete Time: 06:01 [facility] 02/23 05:43 Order name: Bilateral blood pressure; Complete Time: 06:21 [facility] Administered Medications: 06:00 Drug: TORadol 30 mg Route: IVP; Site: right antecubital; lp1 06:42 Follow up: Response: Pain is decreased lp1 06:00 Drug: Valium 5 mg Route: PO; lp1 06:42 Follow up: Response: Pain is decreased lp1 06:00 Drug: morphine 4 mg {Note: RASS 1.} Route: IVP; Site: right antecubital; lp1 06:42 Follow up: Response: Pain is decreased; RASS: Alert and Calm (0) lp1 06:01 Drug: Zofran 4 mg Route: IVP; Site: right antecubital; lp1 06:42 Follow up: Response: No adverse reaction lp1 07:51 Drug: morphine 4 mg {Note: RASS 0.} Route: IVP; Site: right antecubital; tw2 07:57 Follow up: Response: No adverse reaction; Pain is decreased; RASS: Alert and Calm (0) tw2 07:56 CANCELLED (Patient Refused): Zofran 4 mg IVP once; over 2 minutes tw2 Disposition: 02/23/19 07:26 Discharged to Home. Impression: Type 2 diabetes mellitus, Strain of muscle and tendon of back wall of thorax. - Condition is Stable. - Discharge Instructions: Back Pain, Adult, Type 2 Diabetes Mellitus, Diagnosis, Adult, Back Pain, Adult, Vgwo-[id number], Type 2 Diabetes Mellitus, Diagnosis, Adult, [id number]. - Prescriptions for Ibuprofen 600 mg Oral Tablet - take 1 tablet by ORAL route every 8 hours As needed take with food; 21 tablet. Tylenol- Codeine #3 300-30 mg Oral Tablet - take 2 tablet by ORAL route every 6 hours As needed; 30 tablet. Valium 5 mg Oral Tablet - take 1 tablet by ORAL route every 8 hours As needed; 20 tablet. - Medication Reconciliation Form, Thank You Letter, Antibiotic Education, Prescription Opioid Use, Work release form form. - Follow up: Private Physician; When: 2 - 3 days; Reason: Recheck today's complaints, Continuance of care, Re-evaluation by your physician. - Problem is new. - Symptoms have improved. Signatures: Dispatcher [employer] EDYevgeniy Mccullough MD MD cha Pena, Laura RN RN lp1 Rosana Jimenes RN RN tw2 Corrections: (The following items were deleted from the chart) 07:56 07:51 Zofran 4 mg IVP once; over 2 minutes ordered. stefania tw2 07:57 07:26 02/23/2019 07:26 Discharged to Home. Impression: Type 2 diabetes mellitus; Strain tw2 of muscle and tendon of back wall of thorax. Condition is Stable. Discharge Instructions: Back Pain, Adult, Type 2 Diabetes Mellitus, Diagnosis, Adult, Back Pain, Adult, Uvyv-bw-Ouwz, Type 2 Diabetes Mellitus, Diagnosis, Adult, Nloc-yh-Cexz. Prescriptions for Ibuprofen 600 mg Oral Tablet - take 1 tablet by ORAL route every 8 hours As needed take with food; 21 tablet, Tylenol-Codeine #3 300-30 mg Oral Tablet - take 2 tablet by ORAL route every 6 hours As needed; 30 tablet, Valium 5 mg Oral Tablet - take 1 tablet by ORAL route every 8 hours As needed; 20 tablet. and Forms are Medication Reconciliation Form, Thank You Letter, Antibiotic Education, Prescription Opioid Use. Follow up: Private Physician; When: 2 - 3 days; Reason: Recheck today's complaints, Continuance of care, Re-evaluation by your physician. Problem is new. Symptoms have improved. stefania
[2019-02-23 08:07] VITALS: TEMP 97.4
[2019-02-23 08:11] VITALS: O2SAT 99
[2019-02-23 08:13] VITALS: BP 125/90
--- NOTE | 2019-02-23 09:18 | RAD REPORT ---
EXAM DESCRIPTION: RAD - Thoracic Spine Ap/Lat - 02/23/2019 6:34 am CLINICAL HISTORY: Back pain FINDINGS: Mild scoliosis. No dislocation. No fracture is seen
--- NOTE | 2019-02-23 09:32 | RAD REPORT ---
EXAM DESCRIPTION: Luis Fernando Single View02/23/2019 6:59 am CLINICAL HISTORY: Chest pain COMPARISON: 2016 FINDINGS: The lungs appear clear of acute infiltrate. The heart is normal size IMPRESSION: No acute abnormalities displayed
--- NOTE | 2019-02-24 18:25 | EKG ---
Test Date: 2019-02-23 Test Time: 05:54:36 Balling Machine Operator: CYNTHIA MEASUREMENT RESULTS: Intervals: Rate: 76 [place]: 146 QRSD: 104 QT: 392 QTc: 441 [place]: P: 38 [place]: 146 QRS: 57 T: 52 INTERPRETIVE STATEMENTS: Normal sinus rhythm Normal ECG Compared to ECG 02/29/2016 01:51:18 Sinus bradycardia no longer present Electronically Signed On 02-24-19 18:23:02 CDT by Alex Villegas
== END 2019-02-23 07:57 | disposition home or self-care (01) ==
LOC: ER 05:07
DX: S29.012A Strain of muscle and tendon of back wall of thorax, initial encounter (principal); I10 Essential (primary) hypertension; E11.9 Type 2 diabetes mellitus without complications; F17.210 Nicotine dependence, cigarettes, uncomplicated; Z88.0 Allergy status to penicillin
CPT/HCPCS: 36415; 71045; 72070; 80048; 80076; 83690; 83735; 84484; 85025; 93005; 96374; 96375; 99284; J2405

== ENCOUNTER 2019-03-16 19:56 | Emergency (ER) | payer SELFPAY ==
[~2019-03-16 19:56] MED LIST: FENTANYL CITR 100 MCG/2 ML ONE; NA CHLORIDE 0.9% 1,000 ML ONE
[2019-03-16] MEDS ORDERED: ONDANSETRON 4 MG/2 ML VIAL ONE ×2 (20:01→20:39)
[2019-03-16] MEDS ORDERED: HYDROMORPHONE HCL 2 MG/ML inj ONE (20:01)
[2019-03-16] MEDS ORDERED: CEFAZOLIN/SWI 1gm 2 GM/20 ML SYR ONE (20:04)
[2019-03-16] MEDS ORDERED: TETANUS & DIPHTHERIA TOX,ADULT 0.5 ML VIAL ONE (20:05)
[2019-03-16] MEDS ORDERED: KETAMINE HCL 500 MG/5 ML VIAL ONE (20:05)
[2019-03-16] MEDS ORDERED: NA CHLORIDE 0.9% 1,000 ML ONE (20:05)
[2019-03-16 20:35] LABS: Absolute Lymphocytes (CBC) 5.3 K/uL (0.7-4.9); Basophils % 0.5 % (0-1.3); Hematocrit 44.7 % (39.6-49.0); Lymphocytes % 32.6 % (15.3-44.8); MPV 8.4 fL (7.6-11.3); RBC Red Blood Cell Count 4.76 M/uL (4.33-5.43)
[2019-03-16 20:49] LABS: Potassium 3.2 mmol/L (3.5-5.1)
[2019-03-16] MEDS ORDERED: PROMETHAZINE 25 MG/ML VIAL ONE (20:54)
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
[2019-03-16] MEDS ORDERED: HYDROMORPHONE HCL 1 MG/ML INJ ONE (21:09)
[2019-03-16 21:53] VITALS: BP 123/66; TEMP 98.5; O2SAT 100
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
== END 2019-03-16 21:27 | disposition short-term general hospital (02) ==
LOC: ER 19:56
PROC: 2W3LX1Z Immobilization of Right Lower Extremity using Splint (ICD-10-PCS; principal; 2019-03-16)
DX: S82.291A Other fracture of shaft of right tibia, initial encounter for closed fracture (principal); S82.451A Displaced comminuted fracture of shaft of right fibula, initial encounter for closed fracture; S82.102A Unspecified fracture of upper end of left tibia, initial encounter for closed fracture; X93.XXXA Assault by handgun discharge, initial encounter; Y93.9 Activity, unspecified; Y92.9 Unspecified place or not applicable; Z88.0 Allergy status to penicillin; Z23 Encounter for immunization
CPT/HCPCS: 36415; 71045; 72170; 80048; 82962; 85025; 86850; 86900; 86901; 90471; 90714; 96374; 96375; 99291; J0690; J1170; J2405; J2550; J3010; J7030

== ENCOUNTER → 2020-09-01 | Emergency (ER) | payer SELFPAY | LOC: ER 19:34 | DX: Z02.9 Encounter for administrative examinations, unspecified (principal) ==

== ENCOUNTER 2023-09-09 15:25 | Observation (INO) | payer OTHER, SELFPAY ==
[2023-09-09 15:59] LABS: Absolute Basophils 0.1 K/uL (0-0.5); Absolute Lymphocytes (CBC) 2.1 K/uL (0.7-4.9); Absolute Monocytes 0.9 K/uL (0.1-1.3); Absolute Neutrophil 14.1 K/uL (1.8-8.0); Basophils % 0.5 % (0-1.3); Hemoglobin 14.5 g/dL (13.6-17.9); MCH 30.5 pg (27.0-35.0); MCHC 33.8 g/dL (32.0-36.0); MCV 90.2 fL (80-100); MPV 7.6 fL (7.6-11.3); Neutrophils % 82.5 % (41.7-73.7); Platelets 364 thou/uL (152-406); RBC Red Blood Cell Count 4.77 M/uL (4.33-5.43); Red Cell Distribution Width 14.3 % (12.1-15.2)
[2023-09-09 16:13] LABS: Albumin 4.4 g/dL (3.4-5.0); Albumin/Globulin Ratio 1.1 (1.1-1.8); Anion Gap 15.6 mEq/L (5.0-15.0); Bilirubin Total 0.7 mg/dL (0.2-1.0); Globulin 4.1 g/dL (2.3-3.5); Potassium 4.6 mEq/L (3.5-5.1); Protein, Total 8.5 g/dL (6.4-8.2)
[2023-09-09] MEDS ORDERED: DIPHENHYDRAMINE 50 MG/ML VIAL ONE (16:36)
[2023-09-09] MEDS ORDERED: METOCLOPRAMIDE 10 MG/2mL INJ ONE ×2 (16:36→22:29)
[2023-09-09] MEDS ORDERED: NA CHLORIDE 0.9% 1,000 ML ONE ×4 (16:36→22:30)
--- NOTE | 2023-09-09 17:19 | RAD REPORT ---
EXAM DESCRIPTION: CT - Abdomen Pelvis W Contrast - 09/09/2023 5:08 pm CLINICAL HISTORY: Abdominal pain COMPARISON: 2015 TECHNIQUE: Computed axial tomography of the abdomen pelvis was obtained. 100 cc Isovue-300 was admin istered intravenously. Oral contrast was not requested which limits evaluation of bowel and appendix All CT scans are performed using dose optimization technique as appropriate and may include automated exposure control or mA/KV adjustment according to patient size. FINDINGS: Mild fatty liver. Small hiatal hernia The spleen, pancreas, adrenals and left kidney are unremarkable 3.5 centimeter right renal cyst Normal appendix. The wall of portions of the transverse and ascending colon appear mildly thickened. No evidence of di verticulitis. Small inguinal hernias IMPRESSION: Wall of portions of the transverse and ascending colon appear mildly thickened. This cou ld be secondary to incomplete distention or a mild colitis
[2023-09-09] MEDS ORDERED: KETAMINE HCL IN 0.9 % NACL 50 MG/5 ML SYRINGE IV ONE (17:27)
[2023-09-09] MEDS ORDERED: PROMETHAZINE INJ 25 MG/ML AMP ONE (17:28)
[2023-09-09] MEDS ORDERED: LORazepam 2 MG/ML VIAL ONE ×2 (17:58→19:29)
[2023-09-09] MEDS ORDERED: KETOROLAC 30 MG/ML INJ ONE (17:59)
[2023-09-09] MEDS ORDERED: FAMOTIDINE 20 MG/2 ML VIAL IV ONE (17:59)
[2023-09-09] MEDS ORDERED: LIDOCAINE VISCOUS 2% 10ML ORAL SOLN ONE (18:41)
[2023-09-09] MEDS ORDERED: MAGNES/ALUMIN/SIMET 30ML UCUP ONE (18:41)
[2023-09-09] MEDS ORDERED: ACETAMINOPHEN 500 MG TAB PO PRN (19:15)
[2023-09-09] MEDS ORDERED: ONDANSETRON 4 MG/2 ML VIAL IV PRN (19:15)
--- NOTE | 2023-09-09 19:17 | EDPHYS ---
Physician Documentation [facility] Name: Bimal Arriaza Age: 42 yrs Sex: Male : 1980 Arrival Date: 09/09/2023 Time: 15:25 Bed 12 Private MD: ED Physician Ruddy Pope HPI: 09/08 18:49 This 42 yrs old Male presents to ER via EMS with complaints of Abdominal Pain. ms3 18:49 42-year-old male with past medical history of chronic pain, diabetes, gastroparesis, ms3 hypertension presents to the emergency department for abdominal pain, nausea, vomiting that is similar to his previous episodes of gastroparesis. Patient denies fevers, chills. Patient states pain is 10/10. Patient denies any alleviating or inciting factors. Historical: - Allergies: 15:31 PENICILLINS; as6 - PMHx: 15:31 Chronic pain; Diabetes - NIDDM; gastroporeisis; Hypertension; as6 - PSHx: 15:31 leg (Hypertension); as6 - Immunization history:: Adult Immunizations up to date. - Social history:: Smoking status: Patient reports the use of cigarette tobacco products, smokes one-half pack cigarettes per day. ROS: 19:16 Constitutional: Negative for fever, and chills. Neck: Negative for injury, pain, and ms3 swelling, Cardiovascular: Negative for chest pain, and palpitations. Respiratory: Negative for shortness of breath, cough, wheezing, and pleuritic chest pain, 19:16 Skin: Negative for injury, rash, and discoloration, 19:16 Abdomen/GI: Positive for abdominal pain, nausea and vomiting, Exam: 19:16 Constitutional: This is a well developed, well nourished patient who is awake, alert, ms3 and in no acute distress. Head/Face: Normocephalic, atraumatic. Chest/axilla: Normal chest wall appearance and motion. Nontender with no deformity. Respiratory: Lungs have equal breath sounds bilaterally, clear to auscultation and percussion. No rales, rhonchi or wheezes noted. No increased work of breathing, no retractions or nasal flaring. 19:16 MS/ Extremity: Pulses equal, no cyanosis. Neurovascular intact. Full, normal range of motion. 19:16 Cardiovascular: Rate: tachycardic, Rhythm: regular, Pulses: no pulse deficits are appreciated, Heart sounds: normal, normal S1and S2, 19:16 Abdomen/GI: Inspection: abdomen appears normal, Bowel sounds: normal, Palpation: moderate abdominal tenderness, in all quadrants, 19:30 ECG was reviewed by the Attending Physician. ms3 Vital Signs: 15:32 Weight 83.91 kg (R); Height 5 ft. 7 in. (R); Pain 10/10; as6 15:44 BP 181 / 121; Pulse 126; Resp 20; Temp 98.7; Pulse Ox 100% on R/A; bc6 15:59 Pulse 120; Resp 22; Pulse Ox 100% ; Pain 10/10; as6 16:41 BP 171 / 109; Pulse 123; Resp 22; Pulse Ox 99% on R/A; Pain 10/10; as6 17:34 Pulse 109; Resp 22; Pain 10/10; as6 18:05 Pulse 108; Resp 22; Pain 10/10; ll1 19:30 BP 192 / 91; Pulse 96; Resp 18; Temp 99.8; Pulse Ox 100% on R/A; cm10 20:00 BP 187 / 95; Pulse 94; Resp 22; Pulse Ox 100% on R/A; cm10 15:32 Body Mass Index 28.97 (83.91 kg, 170.18 cm) as6 15:32 Pain Scale: Adult as6 15:59 Pain Scale: Adult as6 16:41 Pain Scale: Adult as6 17:34 Pain Scale: Adult as6 18:05 Pain Scale: Adult ll1 MDM: 15:48 Patient medically screened. ms3 18:59 ED course: Colitis identified at this time. Sepsis order set utilized. Cipro and Flagyl ms3 ordered.. 19:16 Differential diagnosis: Gastroparesis vs Abdominal pain vs Pancreatitis vs sepsis. Data ms3 reviewed: vital signs, nurses notes, lab test result(s), radiologic studies, and as a result, I will admit patient. Consideration of Admission/Observation Patient was admitted/placed on observation. I considered the following discharge prescriptions or medication management in the emergency department Medications were administered in the Emergency Department. See MAR. Care significantly affected by the following chronic conditions: Diabetes, Hypertension. Counseling: I had a detailed discussion with the patient and/or guardian regarding the historical points, exam findings, and any diagnostic results supporting the discharge/admit diagnosis, lab results, radiology results, the need for further work-up and treatment in the hospital. 09/08 15:35 Order name: CBC with Diff; Complete Time: 16:22 ms3 09/08 15:35 Order name: CMP; Complete Time: 16:22 ms3 09/08 15:35 Order name: Lipase; Complete Time: 16:22 ms3 09/08 18:56 Order name: Blood Culture Adult (2) ms3 09/08 18:56 Order name: Lactate w/ 2H reflex if indic. ms3 09/08 18:56 Order name: Protime (+inr); Complete Time: 19:48 ms3 09/08 18:56 Order name: Ptt, Activated; Complete Time: 19:48 ms3 09/08 22:21 Order name: CBC with Automated Diff EDMS 09/08 22:21 Order name: Glucose, Ancillary Testing EDMS 09/08 22:34 Order name: Comprehensive Metabolic Panel EDMS 09/08 16:28 Order name: CT Abd/Pelvis - IV Contrast Only; Complete Time: 17:22 ms3 09/08 15:35 Order name: IV Saline Lock; Complete Time: 15:43 ms3 09/08 15:35 Order name: Labs collected and sent; Complete Time: 15:43 ms3 09/08 18:56 Order name: Cardiac monitoring; Complete Time: 19:26 ms3 09/08 18:56 Order name: EKG - Nurse/Tech; Complete Time: 19:26 ms3 09/08 18:56 Order name: IV Saline Lock - Large Bore; Complete Time: 19:26 ms3 09/08 18:56 Order name: O2 Per Protocol; Complete Time: 19:26 ms3 09/08 18:56 Order name: O2 Sat Monitoring; Complete Time: 19:26 ms3 09/08 18:56 Order name: Vital Signs; Complete Time: 19:26 ms3 EC:30 Rate is 98 beats/min. Rhythm is regular. QRS [place] is Normal. NC interval is normal. QRS ms3 interval is normal. Clinical impression: Normal ECG. Interpreted by me. Reviewed by me. Administered Medications: 15:59 Drug: Droperidol IVP 2.5 mg IVP once Route: IVP; Site: right antecubital; as6 16:41 Follow up: Response: No adverse reaction; RASS: Restless (+1) as6 16:40 Drug: metoCLOPramide IVP 10 mg IVP once; over 1 to 2 minutes Route: IVP; Site: right as6 antecubital; 18:34 Follow up: Response: No adverse reaction ll1 16:40 Drug: NS 0.9% IV 1000 ml IV at 1000 ml once Route: IV; Rate: 1000 ml; Site: right as6 antecubital; 18:35 Follow up: Response: No adverse reaction; IV Status: Completed infusion; IV Intake: ll1 1000ml 16:41 Drug: diphenhydrAMINE IVP 25 mg IVP once Route: IVP; Site: right antecubital; as6 18:35 Follow up: Response: No adverse reaction ll1 17:33 Drug: Ketamine IVP 0.2 mg/kg IVP once; Mix in 50 mL NS IV over 10 minutes. Maximum Dose as6 10 mg Route: IVP; Site: right antecubital; 18:35 Follow up: Response: No adverse reaction; Pain is unchanged, physician notified; RASS: ll1 Alert and Calm (0) 17:33 Drug: Promethazine IM 25 mg IM once Route: IM; Site: left gluteus; as6 18:35 Follow up: Response: No adverse reaction; RASS: Restless (+1) ll1 18:04 Drug: Famotidine IVP 20 mg IVP once; dilute with 10 mL 0.9% NaCl; give over 2 minutes ll1 Route: IVP; Site: right antecubital; 19:53 Follow up: Response: No adverse reaction cm10 18:04 Drug: Ketorolac IVP 10 mg 10 mg IVP once Route: IVP; Site: right antecubital; ll1 19:53 Follow up: Response: No adverse reaction cm10 18:04 Drug: NS 0.9% IV 1000 ml IV at 1 bolus Per protocol; 1000 mL bolus Route: IV; Rate: 1 ll1 bolus; Site: right antecubital; 19:53 Follow up: Response: No adverse reaction; IV Status: Completed infusion; IV Intake: cm10 1000ml 18:04 Drug: Ativan IVP 1 mg IVP once Route: IVP; Site: right antecubital; ll1 19:51 Follow up: Response: No adverse reaction cm10 18:46 Drug: GI Cocktail without - (Maalox PO 30 ml, Lidocaine Mucous Membrane 2 % 15 cm10 ml) PO once Route: PO; 19:51 Follow up: Response: No adverse reaction cm10 19:37 Drug: metroNIDAZOLE IVPB 500 mg 100 ml IVPB at 200 ml/hr once over 30 mins Volume: 100 cm10 ml; Route: IVPB; Rate: 200 ml/hr; Infused Over: 30 mins; Site: right hand; 20:51 Follow up: Response: No adverse reaction; IV Status: Completed infusion; IV Intake: cm10 100ml 19:37 Drug: Ativan IVP 2 mg IVP once Route: IVP; Site: left forearm; cm10 20:51 Follow up: Response: No adverse reaction cm10 20:51 Drug: Ciprofloxacin IVPB 400 mg 200 ml IVPB once over 60 mins Volume: 200 ml; Route: cm10 IVPB; Infused Over: 60 mins; Site: right hand; 22:00 Follow up: Response: No adverse reaction; IV Status: Completed infusion; IV Intake: cm10 200ml Disposition Summary: 09/09/23 19:16 Hospitalization Ordered Notes: Hospitalization Status: Inpatient Admission ms3 Provider: Bryanna Merchant ms3 Condition: Stable ms3 Problem: new ms3 Symptoms: are unchanged ms3 Bed/Room Type: Standard ms3 Location: [facility] ER HOLD(09/09/23 19:54) cm10 Room Assignment: ERHOLD-(09/09/23 19:54) cm10 Diagnosis - Colitis ms3 - Abdominal pain ms3 - Nausea and Vomiting ms3 - Leukocytosis ms3 Forms: - Medication Reconciliation Form ms3 - SBAR form ms3 - Leadership Thank You Letter ms3 Signatures: Dispatcher [employer] EDMS Zara Mendoza RN RN ll1 Ruddy Pope DO DO ms3 Anatoly Shine RN RN as6 Jackelyn Silver RN RN cm10 Corrections: (The following items were deleted from the chart) 18:56 18:56 BLOOD CULTURE*+BA.LAB.BRZ ordered. EDMS EDMS 18:56 18:56 LACTATE+C.LAB.BRZ ordered. EDMS EDMS 18:56 18:56 PROTIME (+INR)+COAG.LAB.BRZ ordered. EDMS EDMS 18:56 18:56 PTT, ACTIVATED+COAG.LAB.BRZ ordered. EDMS EDMS 19:54 19:16 Telemetry/MedSurg (Inpatient) ms3 cm10 19:54 19:16 ms3 cm10
--- NOTE | 2023-09-09 19:17 | ER ---
Nurse's Notes [facility] Name: Bimal rAriaza Age: 42 yrs Sex: Male : 1980 Arrival Date: 09/09/2023 Time: 15:25 Bed 12 Private MD: Diagnosis: Colitis;Abdominal pain;Nausea and Vomiting;Leukocytosis Presentation: 09/08 15:32 Chief complaint: EMS states: called out for abdominal pain. 20g to right AC, 4 mg as6 Zofran. Coronavirus screen: At this time, the client does not indicate any symptoms associated with coronavirus-19. Ebola Screen: No symptoms or risks identified at this time. Risk Assessment: Do you want to hurt yourself or someone else? Patient reports no desire to harm self or others. Onset of symptoms was September 09, 2023 at 02:00. 15:32 Acuity: RICARDO 3 as6 15:32 Method Of Arrival: EMS: [facility] as6 16:42 Initial Sepsis Screen: Does the patient meet any 2 criteria? No. Patient's initial as6 sepsis screen is negative. Does the patient have a suspected source of infection? No. Patient's initial sepsis screen is negative. Triage Assessment: 15:31 General: Appears uncomfortable, Behavior is cooperative, restless. Pain: Complains of as6 pain in abdomen. Historical: - Allergies: 15:31 PENICILLINS; as6 - PMHx: 15:31 Chronic pain; Diabetes - NIDDM; gastroporeisis; Hypertension; as6 - PSHx: 15:31 leg (Hypertension); as6 - Immunization history:: Adult Immunizations up to date. - Social history:: Smoking status: Patient reports the use of cigarette tobacco products, smokes one-half pack cigarettes per day. Screenin:41 [facility] ED Fall Risk Assessment (Adult) History of falling in the last 3 months, as6 including since admission No falls in past 3 months (0 pts) Confusion or Disorientation Yes (5 pts) Intoxicated or Sedated No (0 pts) Impaired Gait Yes (1 pt) Mobility Assist Device Used Yes (1 pt) Altered Elimination No (0 pt) Score/Fall Risk Level 3 or more points = High Risk Maintained a safe environment, Hourly rounding (assess needs \T\ fall precautionary measures) done. Abuse screen: Denies threats or abuse. Nutritional screening: No deficits noted. Tuberculosis screening: No symptoms or risk factors identified. Assessment: 16:00 General: Appears uncomfortable, ill, Behavior is appropriate for age, anxious, as6 restless. Pain: Complains of pain in abdomen Quality of pain is described as aching, crampy, throbbing. GI: Reports lower abdominal pain, upper abdominal pain. 16:41 Reassessment: No changes from previously documented assessment. Patient and/or family as6 updated on plan of care and expected duration. Pain level reassessed. 17:34 Reassessment: No changes from previously documented assessment. Patient and/or family as6 updated on plan of care and expected duration. Pain level reassessed. 18:05 Reassessment: No changes from previously documented assessment. Patient and/or family ll1 updated on plan of care and expected duration. Pain level reassessed. Vital Signs: 15:32 Weight 83.91 kg (R); Height 5 ft. 7 in. (R); Pain 10/10; as6 15:44 BP 181 / 121; Pulse 126; Resp 20; Temp 98.7; Pulse Ox 100% on R/A; bc6 15:59 Pulse 120; Resp 22; Pulse Ox 100% ; Pain 10/10; as6 16:41 BP 171 / 109; Pulse 123; Resp 22; Pulse Ox 99% on R/A; Pain 10/10; as6 17:34 Pulse 109; Resp 22; Pain 10/10; as6 18:05 Pulse 108; Resp 22; Pain 10/10; ll1 19:30 BP 192 / 91; Pulse 96; Resp 18; Temp 99.8; Pulse Ox 100% on R/A; cm10 20:00 BP 187 / 95; Pulse 94; Resp 22; Pulse Ox 100% on R/A; cm10 15:32 Body Mass Index 28.97 (83.91 kg, 170.18 cm) as6 15:32 Pain Scale: Adult as6 15:59 Pain Scale: Adult as6 16:41 Pain Scale: Adult as6 17:34 Pain Scale: Adult as6 18:05 Pain Scale: Adult ll1 ED Course: 15:29 Patient arrived in ED. eb 15:31 Arm band placed on. as6 15:33 Ruddy Pope DO is Attending Physician. ms3 15:33 Triage completed. as6 15:43 CBC with Diff Sent. bc6 15:43 CMP Sent. bc6 15:43 Lipase Sent. bc6 15:43 Initial lab(s) drawn, by me, sent to lab. bc6 16:42 Patient has correct armband on for positive identification. Bed in low position. Call as6 light in reach. Client placed on continuous cardiac and pulse oximetry monitoring. NIBP monitoring applied. monitoring coordinator on. 17:10 CT Abd/Pelvis - IV Contrast Only In Process Unspecified. EDMS 18:36 Jackelyn Silver, HUNTER is Primary Nurse. cm10 19:16 Bryanna Merchant MD is Hospitalizing Provider. ms3 19:20 First set of blood cultures drawn by me. Initial lab(s) drawn, by me, sent to lab. cm10 Inserted saline lock: 22 gauge in left forearm, using aseptic technique. Blood collected. 19:27 Lactate w/ 2H reflex if indic. Sent. cm10 19:27 Protime (+inr) Sent. cm10 19:27 Ptt, Activated Sent. cm10 19:37 Second set of blood cultures drawn by me. Inserted saline lock: 18 gauge in right hand, cm10 using aseptic technique. Blood collected. 19:49 Blood Culture Adult (2) Sent. cm10 20:18 Provided Education on: Need for admit.. cm10 20:18 No provider procedures requiring assistance completed. Patient admitted, IV remains in cm10 place. 21:45 Report given to HUNTER Barbosa who assumes care of patient. cm10 Administered Medications: 15:59 Drug: Droperidol IVP 2.5 mg IVP once Route: IVP; Site: right antecubital; as6 16:41 Follow up: Response: No adverse reaction; RASS: Restless (+1) as6 16:40 Drug: metoCLOPramide IVP 10 mg IVP once; over 1 to 2 minutes Route: IVP; Site: right as6 antecubital; 18:34 Follow up: Response: No adverse reaction ll1 16:40 Drug: NS 0.9% IV 1000 ml IV at 1000 ml once Route: IV; Rate: 1000 ml; Site: right as6 antecubital; 18:35 Follow up: Response: No adverse reaction; IV Status: Completed infusion; IV Intake: ll1 1000ml 16:41 Drug: diphenhydrAMINE IVP 25 mg IVP once Route: IVP; Site: right antecubital; as6 18:35 Follow up: Response: No adverse reaction ll1 17:33 Drug: Ketamine IVP 0.2 mg/kg IVP once; Mix in 50 mL NS IV over 10 minutes. Maximum Dose as6 10 mg Route: IVP; Site: right antecubital; 18:35 Follow up: Response: No adverse reaction; Pain is unchanged, physician notified; RASS: ll1 Alert and Calm (0) 17:33 Drug: Promethazine IM 25 mg IM once Route: IM; Site: left gluteus; as6 18:35 Follow up: Response: No adverse reaction; RASS: Restless (+1) ll1 18:04 Drug: Famotidine IVP 20 mg IVP once; dilute with 10 mL 0.9% NaCl; give over 2 minutes ll1 Route: IVP; Site: right antecubital; 19:53 Follow up: Response: No adverse reaction cm10 18:04 Drug: Ketorolac IVP 10 mg 10 mg IVP once Route: IVP; Site: right antecubital; ll1 19:53 Follow up: Response: No adverse reaction cm10 18:04 Drug: NS 0.9% IV 1000 ml IV at 1 bolus Per protocol; 1000 mL bolus Route: IV; Rate: 1 ll1 bolus; Site: right antecubital; 19:53 Follow up: Response: No adverse reaction; IV Status: Completed infusion; IV Intake: cm10 1000ml 18:04 Drug: Ativan IVP 1 mg IVP once Route: IVP; Site: right antecubital; ll1 19:51 Follow up: Response: No adverse reaction cm10 18:46 Drug: GI Cocktail without - (Maalox PO 30 ml, Lidocaine Mucous Membrane 2 % 15 cm10 ml) PO once Route: PO; 19:51 Follow up: Response: No adverse reaction cm10 19:37 Drug: metroNIDAZOLE IVPB 500 mg 100 ml IVPB at 200 ml/hr once over 30 mins Volume: 100 cm10 ml; Route: IVPB; Rate: 200 ml/hr; Infused Over: 30 mins; Site: right hand; 20:51 Follow up: Response: No adverse reaction; IV Status: Completed infusion; IV Intake: cm10 100ml 19:37 Drug: Ativan IVP 2 mg IVP once Route: IVP; Site: left forearm; cm10 20:51 Follow up: Response: No adverse reaction cm10 20:51 Drug: Ciprofloxacin IVPB 400 mg 200 ml IVPB once over 60 mins Volume: 200 ml; Route: cm10 IVPB; Infused Over: 60 mins; Site: right hand; 22:00 Follow up: Response: No adverse reaction; IV Status: Completed infusion; IV Intake: cm10 200ml Medication: 17:34 VIS not applicable for this client. as6 Intake: 18:35 IV: 1000ml; Total: 1000ml. ll1 19:53 IV: 1000ml; Total: 2000ml. cm10 20:51 IV: 100ml; Total: 2100ml. cm10 22:00 IV: 200ml; Total: 2300ml. cm10 Outcome: 19:16 Decision to Hospitalize by Provider. ms3 20:18 Admitted to ER Hold. Please see [facility] for further documentation. cm10 20:18 Condition: good 20:18 Instructed on the need for admit, 09/09 05:06 Patient left the ED. cm10 Signatures: Dispatcher [employer] EDMS Polly Givens Lynsay RN RN ll1 Ruddy Pope, DO ms3 Anatoly Shine, RN RN as6 Maria Esther Dill Clarissa, HUNTER RN cm10
[2023-09-09] MEDS ORDERED: CIPROFLOXACIN 400mg IV 400 MG/200 ML BAG IV ONE (19:29)
[2023-09-09] MEDS ORDERED: METRONIDAZOLE 500mg IVPB 500 MG/100 ML BAG IV ONE (19:30)
[2023-09-09 19:45] LABS: PT Prothrombin Time 12.6 SECONDS (9.5-12.5); PTT, Activated Partial Thromb 30.8 SECONDS (24.3-36.9); Protime INR 1.15
[2023-09-09 19:52] VITALS: BMI 29.0
[2023-09-09] MEDS ORDERED: HYDROCODONE/APAP 10/325 TAB ONE (20:39)
[2023-09-09] MEDS ORDERED: METOPROLOL TARTRATE 5 MG/5 ML INJ IV ONE ×2 (20:40→22:29)
[2023-09-09] MEDS: NA CHLORIDE 0.9% 1,000 ML IV ONE (20:52)
[2023-09-09 22:20] LABS: Absolute Basophils 0.1 K/uL (0-0.5); Absolute Eosinophils 0.1 K/uL (0-0.5); Absolute Lymphocytes (CBC) 1.2 K/uL (0.7-4.9); Absolute Monocytes 0.4 K/uL (0.1-1.3); Absolute Neutrophil 12.7 K/uL (1.8-8.0); Basophils % 0.4 % (0-1.3); Eosinophils % 0.6 % (0-4.4); Hematocrit 40.9 % (39.6-49.0); Hemoglobin 13.4 g/dL (13.6-17.9); Lymphocytes % 8.4 % (15.3-44.8); MCH 29.8 pg (27.0-35.0); MCHC 32.7 g/dL (32.0-36.0); MCV 91.3 fL (80-100); Monocytes % 2.5 % (3.3-12.3); Neutrophils % 88.1 % (41.7-73.7); Platelets 347 thou/uL (152-406); RBC Red Blood Cell Count 4.48 M/uL (4.33-5.43); Red Cell Distribution Width 14.5 % (12.1-15.2)
--- NOTE | 2023-09-09 22:20 | P.HP ---
Certification for Inpatient Patient admitted to: Observation With expected LOS: <2 Midnights Practitioner: I am a practitioner with admitting privileges, knowledge of patient current condition, hospital course, and medical plan of care. Services: Services provided to patient in accordance with Admission requirements found in Title 42 Section 412.3 of the Code of Federal Regulations Patient History Date of Service: 09/09/23 Reason for admission: Intractable nausea and vomiting secondary to gastroparesis/abdominal pain History of Present Illness: Patient is a 42-year-old gentleman who is well-known to me from multiple prior admissions in the past. He has diabetic gastroparesis, and whenever he has a flareup with intractable nausea vomiting he complains of abdominal pain. This normally happens whenever he runs out of his pain medications at home. He recently ran out of his hydrocodone's and he has been having significant pain and started having nausea and vomiting. Patient was admitted to the hospital for further evaluation. In the ER patient was not treated with any narcotics but was just given benzo, Phenergan, and Toradol. Patient's not getting any improvement. We did give him some Hardin, he started to feel much better. Patient was also given a dose of Reglan. Allergies Penicillins Allergy (Severe, Verified 09/10/23 02:05) Itching/Hives/Rash Home Medications: Glimepiride [Amaryl] 2 mg PO BID 02/29/16 Metoclopramide HCl [Reglan] 10 mg PO SEECOM 02/29/16 lisinopriL [Lisinopril] 1 tab PO DAILY 02/29/16 Codeine/APAP [Tylenol #3*] 1 tab PO Q6HP PRN #20 tab 03/01/16 Hydrocodone 10/APAP 325 [Hardin 10/325] 1 tab PO Q6H PRN #30 tab 09/09/23 Metoclopramide HCl [Reglan] 10 mg PO ACHS #120 tab 09/09/23 Losartan Potassium 50 mg PO DAILY #30 tab 09/10/23 Metoprolol Tartrate [Lopressor] 50 mg PO BID #60 tab 09/10/23 Pantoprazole [Protonix Tab] 40 mg PO BID #60 tab 09/10/23 - Past Medical/Surgical History Diabetic: Yes -: Gastroparesis -: NIDDM -: HTN Past Surgical History: Patient denies surgical history - Family History Mother Medical History: Hypertension, Diabetes - Social History Smoking Status: Former smoker Alcohol use: No CD- Drugs: No Caffeine use: Yes Review of Systems 10-point ROS is otherwise unremarkable Physical Examination - Vital Signs Temperature: 98 F Blood Pressure: 168/77 Pulse: 92 Respirations: 18 Pulse Ox (%): 100 - Physical Exam General: Alert, In no apparent distress, Oriented x3 HEENT: Atraumatic, PERRLA, Mucous membr. moist/pink, EOMI, Sclerae nonicteric Neck: Supple, 2+ carotid pulse no bruit, No LAD, Without JVD or thyroid abnormality Respiratory: Clear to auscultation bilaterally, Normal air movement Cardiovascular: Regular rate/rhythm, Normal S1 S2 Gastrointestinal: Normal bowel sounds, Soft and benign, Non-distended, No rebound, No guarding, Tenderness (Epigastric region) Musculoskeletal: No clubbing, No swelling, No tenderness Integumentary: No rashes Neurological: Normal gait, Normal speech, Normal strength at 5/5 x4 extr, Normal tone, Sensation intact, Cranial nerves 3-12 intact, Normal affect Lymphatics: No axilla or inguinal lymphadenopathy - Studies Laboratory Data (last 24 hrs) 09/09/23 09/09/23 15:40 15:40 WBC 17.10 H Hgb 14.5 Hct 43.0 Plt Count 364 Sodium 134 L Potassium 4.6 BUN 21 H Creatinine 1.48 H Glucose 249 H Total Bilirubin 0.7 AST 41 H ALT 66 H Alkaline Phosphatase 88 Lipase 45 Assessment & Plan - Problems (Diagnosis) (1) Diabetic gastroparesis Current Visit: Yes Status: Acute (2) Intractable nausea and vomiting Current Visit: Yes Status: Acute (3) Abdominal pain Onset Date: 06/04/15 Current Visit: No Status: Active (4) Diabetes mellitus Onset Date: 06/04/15 Current Visit: No Status: Acute Qualifiers: Diabetes mellitus type: type 2 Diabetes mellitus long term care social worker insulin use: without nursing home use Diabetes mellitus complication status: with other specified complication Qualified Code(s): E11.69 - Type 2 diabetes mellitus with other specified complication - Plan Plan: 1. Continue with IV fluids 2. Continue with Reglan 3. Hardin for pain 4. Antiemetics as needed 5. GI and DVT prophylaxis Discharge Plan: Home Plan to discharge in: 24 Hours - Advance Directives Does patient have a Living Will: No Does patient have a Durable POA for Healthcare: No - Code Status/Comfort Care Code Status Assessed: Yes Code Status: Full Code Critical Care: No Time Spent Managing PTS Care (In Minutes): 45
[2023-09-09] MEDS ORDERED: INSULIN REGULAR (HUMAN) 100 UNIT/ML ONE (22:30)
[2023-09-09 22:33] LABS: Albumin 3.7 g/dL (3.4-5.0); Anion Gap 12.3 mEq/L (5.0-15.0); Bilirubin Total 0.5 mg/dL (0.2-1.0); Globulin 3.8 g/dL (2.3-3.5); Potassium 4.3 mEq/L (3.5-5.1); Protein, Total 7.5 g/dL (6.4-8.2)
[2023-09-09] MEDS: METOCLOPRAMIDE 10 MG/2mL INJ IV SCH (22:39)
[2023-09-09] MEDS: INSULIN REGULAR (HUMAN) 100 UNIT/ML SQ SCH (22:39)
[2023-09-09] MEDS: NA CHLORIDE 0.9% 1,000 ML IV SCH (22:40)
[2023-09-09] MEDS: METOPROLOL TARTRATE 5 MG/5 ML INJ IV STA (22:40)
[2023-09-10] MEDS ORDERED: HYDROCODONE/APAP 10/325 TAB ONE (00:17)
[2023-09-10] MEDS: HYDROCODONE/APAP 10/325 TAB PO ONE (00:19)
[2023-09-10 01:57] VITALS: O2SAT 100
[2023-09-10] MEDS ORDERED: HYDROCODONE/APAP 10/325 TAB PO PRN (02:00)
[2023-09-10] MEDS ORDERED: SODIUM CHLORIDE 0.9% 10ML INJ IV PRN (02:45)
[2023-09-10] MEDS: MAGIC MOUTHWASH 180 ML BTL PO ONE (02:45)
--- NOTE | 2023-09-10 03:07 | P.DS ---
Discharge Date: 09/10/23 Disposition: ROUTINE DISCHARGE Discharge Condition: GOOD Reason for Admission: Intractable nausea and vomiting secondary to gastroparesis/abdominal pain Brief History of Present Illness: Patient is a 42-year-old gentleman who is well-known to me from multiple prior admissions in the past. He has diabetic gastroparesis, and whenever he has a flareup with intractable nausea vomiting he complains of abdominal pain. This normally happens whenever he runs out of his pain medications at home. He recently ran out of his hydrocodone's and he has been having significant pain and started having nausea and vomiting. Patient was admitted to the hospital for further evaluation. In the ER patient was not treated with any narcotics but was just given benzo, Phenergan, and Toradol. Patient's symptoms improved after [place]. Patient was admitted for observation. Hospital Course: We will go ahead and send him home with Reglan and pain control as well as antiemetics. At this time, patient stable for discharge home. Patient will also be given a PPI at discharge. Patient is also given medication for blood pressure control. Patient will discharge on Lopressor and losartan. Vital Signs/Physical Exam: Temp Pulse Resp BP Pulse Ox 92 H 18 168/77 H 100 09/10/23 02:02 09/10/23 02:02 09/10/23 02:02 09/10/23 02:02 General: Alert, In no apparent distress, Oriented x3 Laboratory Data at Discharge: WBC 14.50 thou/uL (4.3-10.9) H 09/09/23 22:07 Hgb 13.4 g/dL (13.6-17.9) L 09/09/23 22:07 Hct 40.9 % (39.6-49.0) 09/09/23 22:07 Plt Count 347 thou/uL (152-406) 09/09/23 22:07 PT 12.6 SECONDS (9.5-12.5) H 09/09/23 19:20 INR 1.15 09/09/23 19:20 APTT 30.8 SECONDS (24.3-36.9) 09/09/23 19:20 Sodium 134 mEq/L (136-145) L 09/09/23 22:07 Potassium 4.3 mEq/L (3.5-5.1) 09/09/23 22:07 BUN 17 mg/dL (7-18) 09/09/23 22:07 Creatinine 1.17 mg/dL (0.70-1.30) 09/09/23 22:07 Glucose 283 mg/dL (74-106) H 09/09/23 22:07 Total Bilirubin 0.5 mg/dL (0.2-1.0) 09/09/23 22:07 AST 47 U/L (15-37) H 09/09/23 22:07 ALT 58 U/L (16-61) 09/09/23 22:07 Alkaline Phosphatase 75 U/L (45-117) 09/09/23 22:07 Lipase 45 U/L (13-75) 09/09/23 15:40 Home Medications: Glimepiride [Amaryl] 2 mg PO BID 02/29/16 lisinopriL [Lisinopril] 1 tab PO DAILY 02/29/16 Codeine/APAP [Tylenol #3*] 1 tab PO Q6HP PRN #20 tab 03/01/16 Hydrocodone 10/APAP 325 [Mont[place] 10/325] 1 tab PO Q6H PRN #30 tab 09/09/23 Metoclopramide HCl [Reglan] 10 mg PO ACHS #120 tab 09/09/23 Losartan Potassium 50 mg PO DAILY #30 tab 09/10/23 Metoprolol Tartrate [Lopressor] 50 mg PO BID #60 tab 09/10/23 Ondansetron [Zofran] 4 mg PO Q6H PRN #20 tab 09/10/23 Pantoprazole [Protonix Tab] 40 mg PO BID #60 tab 09/10/23 New Medications: Metoprolol Tartrate [Lopressor] 50 mg PO BID #60 tab Losartan Potassium 50 mg PO DAILY #30 tab Hydrocodone 10/APAP 325 [[place] 10/325] 1 tab PO Q6H PRN #30 tab PRN Reason: Pain Pantoprazole [Protonix Tab] 40 mg PO BID #60 tab Metoclopramide HCl [Reglan] 10 mg PO ACHS #120 tab Ondansetron [Zofran] 4 mg PO Q6H PRN #20 tab PRN Reason: Nausea / Vomiting Physician Discharge Instructions: -DC IV and DC home -Follow-up with PCP in 1 to 2 weeks -Follow-up with Gastroenterology in 1 to 2 weeks -Please call Dr. Merchant at [phone] if any questions regarding hospital stay -Please call nursing station at [phone] if any nursing or medication questions -Return to the emergency room if symptoms worsen Diet: ADA Activity: Fall precautions Followup: NONE,NONE [Primary Care Provider] - Time spent managing pt's care (in minutes): 35
[2023-09-10] MEDS ORDERED: METOCLOPRAMIDE 10 MG/2mL INJ ONE (03:08)
[2023-09-10] MEDS: PANTOPRAZOLE 40 MG INJ IVP ONE (03:12)
[2023-09-10] MEDS: HYDROCODONE/APAP 5/325 MG TAB PO ONE (03:12)
[2023-09-10] MEDS ORDERED: MAGNES/ALUMIN/SIMET 30ML UCUP PO ONE (04:14)
[2023-09-10 09:28] VITALS: BP 187/95; TEMP 99.8
--- NOTE | 2023-09-11 13:44 | EKG ---
Test Date: 2023-09-09 Test Time: 18:27:17 Labor Arbitrator: ZAHRAA MEASUREMENT RESULTS: Intervals: Rate: 98 [place]: 146 QRSD: 100 QT: 362 QTc: 462 [place]: P: 51 [place]: 146 QRS: 80 T: 47 INTERPRETIVE STATEMENTS: Normal sinus rhythm Normal ECG Compared to ECG 02/23/2019 05:54:36 No significant changes Electronically Signed On 09-11-23 13:37:36 CDT by Giuseppe Rose
== END 2023-09-10 03:55 | disposition home or self-care (01) ==
LOC: ER 15:25 → ERHOLD 19:15
PROVIDERS: ADMIT Hospitalist; ATTEND Hospitalist
DX: E11.43 Type 2 diabetes mellitus with diabetic autonomic (poly)neuropathy (principal); K31.84 Gastroparesis; I10 Essential (primary) hypertension; K52.9 Noninfective gastroenteritis and colitis, unspecified; D72.829 Elevated white blood cell count, unspecified; R11.2 Nausea with vomiting, unspecified; R10.9 Unspecified abdominal pain; Z88.0 Allergy status to penicillin; Z87.891 Personal history of nicotine dependence
CPT/HCPCS: 36415; 74177; 80053; 82947; 83605; 83690; 85025; 85610; 85730; 87040; 93005; C9113; G0378; J0744; J1200; J1815; J2550; J2765; J7030; Q9967